=== PATIENT | male | born 1945 | race Caucasian/White ===

== ENCOUNTER 2019-10-11 12:12 | Outpatient (CLI) | payer OTHER, SELFPAY ==
--- NOTE | ~2019-10-11 | XR_ITS ---
XR hip RT min 2V 10/11/2019 12:30 INDICATION: Right hip pain. PROCEDURE: 3 views right hip COMPARISON: No prior studies for comparison. FINDINGS: Fracture, dislocation or subluxation is not identified. The soft tissues appear within norm al limits. No foreign bodies are identified. IMPRESSION: 1: NO ACUTE BONE OR JOINT ABNORMALITY IDENTIFIED. Reviewed, dictated and finalized at location A.
== END 2019-10-11 12:13 | disposition home or self-care (01) ==
PROVIDERS: PCP Family Medicine; Visit Provider Family Medicine
DX: M25.551 Pain in right hip (principal)
CPT/HCPCS: 73502

== ENCOUNTER 2019-11-15 18:59 | Inpatient (IN) | payer OTHER, SELFPAY ==
--- NOTE | ~2019-11-15 | CT_ITS ---
EXAMINATION: CT guide absc cath placement DATE: 11/17/2019 13:39 INDICATION: Perisigmoid abscess. TECHNIQUE: The procedure including the risks, benefits, and alternatives was discussed with the patie nt. Risks discussed included bleeding and infection. The patient understood the risks and benefits an d agreed to proceed. The patient was confirmed to be receiving appropriate antibiotic coverage. The skin overlying the abdomen was prepped and draped in usual sterile fashion. Anesthetic was administe red with 1% lidocaine subcutaneously. Sedation was provided by anesthesiology. An 18 gauge trochar ne edle was inserted into the perisigmoid abscess with CT guidance. The needle was exchanged over a wire for 6 Greek, 8 Greek, and 9 Greek dilators and then for an 8.5 Greek pigtail catheter. The robel ter was stitched to the skin, and a sterile dressing was applied. The mA was adjusted according to pa tient size. Iterative reconstruction technique was employed. The dose-length product was 205.08 mGy-c m. There were no immediate complications. FINDINGS: CT images demonstrate the catheter within the fluid collection. 5 mL fluid was aspirated fo r testing. IMPRESSION: 1. Successful CT-guided perisigmoid abscess drainage. 2. 5 mL galvan, opaque fluid was sent for aerobic and anaerobic cultures. Reviewed, dictated and finalized at location A.
--- NOTE | ~2019-11-15 | CT_ITS ---
EXAMINATION: CT abdomen pelvis wo con DATE: 11/15/2019 22:00 INDICATION: Lower abdominal pain TECHNIQUE: Computed tomography (CT) of the abdomen and pelvis was performed without intravenous contr ast. The dose-length product (DLP) was 1245.11 mGy-cm. Automated exposure control and iterative recon struction technique were employed. COMPARISON: 11/25/2012 FINDINGS: Minimal dependent atelectasis is present in the lung bases. The heart size is normal. Punct ate calcifications in an otherwise normal spleen likely represent healed granulomatous disease. The l iver, pancreas, and adrenal glands are normal. The kidneys are unremarkable. There is a 2.8 x 2.6 cm cystic lesion in the head of the pancreas. The pancreatic duct appears normal in caliber. There is a chronic mildly enlarged peripancreatic lymph node measuring 1.4 cm in short axis. There are otherwise no enlarged abdominal or pelvic lymph nodes. There is calcified atherosclerosis of the aorta and man y of the other arteries. There are multiple sigmoid diverticula. There is inflammatory change of the sigmoid colon with a 7.0 x 3.7 cm perisigmoid abscess. A large volume of free intraperitoneal gas is seen which tracks into the upper abdomen and under the hemidiaphragms. There are no dilated loops of bowel. IMPRESSION: 1. Perforated sigmoid diverticulitis with 7.0 x 3.7 cm perisigmoid abscess. 2. 2.8 cm cystic lesion in the pancreatic head. The differential diagnosis includes pseudocyst, intra ductal papillary mucinous neoplasm (IPMN), mucinous cystic neoplasm (MCN), and the less common serous cystadenoma and neuroendocrine tumor. Follow-up dedicated pancreas protocol CT or MRI in six months is recommended. Reviewed, dictated and finalized at location A. IMPRESSION: 1. Perforated sigmoid diverticulitis with 7.0 x 3.7 cm perisigmoid abscess. 2. 2.8 cm cystic lesion in the pancreatic head. The differential diagnosis incl udes pseudocyst, intraductal papillary mucinous neoplasm (IPMN), mucinous cysti c neoplasm (MCN), and the less common serous cystadenoma and neuroendocrine antia or. Follow-up dedicated pancreas protocol CT or MRI in six months is recommende d.
[2019-11-15 18:59] VITALS: BP 123/69; PULSE 103; RESP 25; TEMP 36.7; O2SAT 95
--- NOTE | 2019-11-15 19:05 | ECG_ITS ---
Measurements Intervals [place] Rate: 100 P: 3 [place]: 167 QRS: 20 QRSD: 103 T: -5 QT: 314 QTc: 405 Interpretive Statements SINUS TACHYCARDIA INFERIOR INFARCT, AGE INDETERMINATE BASELINE ARTIFACT- I, II, AVR, AVL ABNORMAL ECG Electronically Signed On 11-16-2019 7:05:05 CDT by Christoph Ellis D.O.
[2019-11-15 19:19] LABS: Basophils Absolute Auto 0.1 K/mm3 (0.0-0.1); Basophils Percent Auto 0.5 % (0.2-1.2); Eosinophils Absolute Auto 0.1 K/mm3 (0-0.3); Eosinophils Percent Auto 0.4 % (0-4.4); Hematocrit 47.4 % (42.0-52.0); Hemoglobin 15.3 g/dL (14.0-18.0); Immature Granulocyte Absolute 0.08 K/mm3 (0.00-0.031); Immature Granulocyte Percent A 0.5 % (0-0.5); Lymphocytes Absolute Auto 1.23 K/mm3 (0.9-3.2); Lymphocytes Percent Auto 7.3 % (18.3-44.2); Mean Corpuscular HGB Conc 32.3 g/dl (32-36); Mean Corpuscular Hemoglobin 28.7 pg (26-34); Mean Corpuscular Volume 88.8 fl (80-100); Mean Platelet Volume 9.6 fl (7.4-10.4); Monocytes Absolute Auto 0.8 K/mm3 (0.1-0.6); Monocytes Percent Auto 4.7 % (2.6-8.5); Neutrophils Absolute Auto 14.6 K/mm3 (1.3-6.7); Neutrophils Percent Auto 86.6 % (45.5-73.1); Platelet Count Result 232 k/mm3 (150-375); Red Blood Count 5.34 M/mm3 (4.6-6.20); Red Cell Distribution Width 14.9 % (11.5-14.5); White Blood Count 16.8 K/mm3 (4.5-10.0)
[2019-11-15 19:30] LABS: Alanine Aminotransferase 38 U/L (4-50); Albumin Level 4.6 g/dL (3.5-5.1); Alkaline Phosphatase 44 U/L (38-126); Anion Gap 15.7 mmol/L (7-16); Aspartate Amino Transferase 34 U/L (17-59); Bilirubin,Total 0.9 mg/dL (0.2-1.3); Blood Urea Nitrogen 23 mg/dL (9-20); Carbon Dioxide 25 mmol/L (22-30); Chloride 103 mmol/L (98-107); Estimated CRCL calculation 45 ml/min; Estimated Glomerular Filt Rate 43; Glucose 133 mg/dL (75-110); Lipase 75 U/L (23-300); Potassium 4.7 mmol/L (3.4-5.0); Sodium 139 mmol/L (137-145)
--- NOTE | 2019-11-15 19:30 | PC.NURSE ---
pt states she isn't able to urinate at this time, refused straight cath.
[2019-11-15 19:36] VITALS: BP 114/63; PULSE 103; RESP 21; O2SAT 97
--- NOTE | 2019-11-15 20:13 | PC.NURSE ---
pt states he isn't able to give urine sample at this time. pt has urinal at bedside. told to use call light when able to give urine sample.
--- NOTE | 2019-11-15 20:28 | PC.NURSE ---
pt called out asking for glass of water. this rn told pt that he cant have water until he gives urine sample and we get all tests back. pt states i cant pee without water. this rn told pt that i will check with doc about starting fluids through IV, pt states no, i need something to moisten my throat.
[2019-11-15] MEDS: ONDANSETRON INJ 4 MG/2 ML VIAL IV PUSH (20:47)
[2019-11-15 20:50] VITALS: BP 121/70; PULSE 97; RESP 21; O2SAT 99
--- NOTE | 2019-11-15 21:33 | PC.NURSE ---
pt states he isn't able to urinate at this time. refused straight cath.
--- NOTE | 2019-11-15 21:43 | ED.ABDPAIN ---
HPI - Abdominal Pain General Chief Complaint: Abdominal Pain Stated Complaint: abd pain/ syncope Time Seen by Provider: 11/15/19 19:52 Source: patient and family Mode of arrival: ambulatory Limitations: no limitations History of Present Illness HPI narrative: 74-year-old man Has a history of diverticulitis and diabetes Complains of about 3 days of diarrhea and worsening lower abdominal pain which is located mainly on the right side He does not think this is diverticulitis, because it does not seem like diverticulitis to him His appetite is been poor is little nauseated he has not had a fever today he had a episode of lightheadedness No urinary symptoms He has had no abdominal operations Related Data Home Medications Medication Instructions Recorded Confirmed albuterol sulfate INHALATION 11/15/19 glipizide mg 11/15/19 losartan 11/15/19 metformin mg PO 11/15/19 metformin mg PO 11/15/19 Allergies Allergy/AdvReac Type Severity Reaction Status Date / Time Sulfa (Sulfonamide Allergy Unknown Swelling Verified 11/15/19 19:07 Antibiotics) of Lip/Tongue/Throat sulfur dioxide Allergy Unknown Swelling Verified 11/15/19 19:07 of Lip/Tongue/Throat codeine Allergy Vomiting Verified 11/15/19 19:07 Review of Systems Review of Systems: All systems reviewed & are unremarkable except as noted in HPI and below Constitutional: Constitutional: Reports no additional constitutional complaints, Denies chills, Reports fatigue, Denies fever(s) and Reports weakness Eyes: Eyes: Reports no additional eye complaints ENT: Reports system reviewed and no additional complaints, except as documented Cardiovascular: Cardiovascular: Reports no additional cardiovascular complaints and Denies chest pain Respiratory: Respiratory: Reports no additional respiratory complaints, Denies cough and Denies dyspnea Gastrointestinal: Gastrointestinal: Reports as per HPI and Reports no additional gastrointestinal complaints Genitourinary: Genitourinary: Reports no additional male genitourinary complaints and Denies hematuria Musculoskeletal: Musculoskeletal: Reports arthralgias Neurologic: Reports dizziness, Denies headache(s) and Denies weakness [facility] Social History Social History Smoking status: Current every day smoker Alcohol intake: never Exam Const: General: no acute distress and well developed Nutritional Appearance: obese Orientation/consciousness: patient oriented x3 (alert) and Other orientation findings (Alert) Limitations: no limitations HENMT: Head: normocephalic and atraumatic General nose exam: No nasal discharge present Face and sinus: face symmetric Mouth: Yes tongue normal and Yes moist mucous membranes Throat: other (No exudate, no erythema) Eyes: Conjunctivae: conjunctivae normal Sclera: sclerae normal EOM: EOMs intact bilaterally Neck: Neck: full ROM, no lymphadenopathy and supple Thyroid: thyroid normal Chest: Chest palpation & inspection: no tenderness Resp: Effort & Inspection: normal respiratory effort Auscultation: clear to auscultation bilaterally, no rales, no rhonchi, no wheezes and other (breath sounds equal) Cardio: Rate: regular rate Rhythm: regular rhythm Heart sounds: no gallops and no murmurs GI: GI Palp: No abdominal tenderness, Yes Tenderness to palpation present (GI), Yes Guarding due to palpation present (GI), No Rigid due to palpation and Yes Rebound tenderness present Auscultation: other (bowel sounds present) Other: R > L lq's : General: Yes no CVA tenderness Back/Spine/Pelvis: Back: no CVA tenderness Thoracic/Lumbar Spine: thoracic and lumbar spine normal to inspection Skin: General skin exam: normal color and no rashes or lesions noted Neuro: General: patient oriented x3 (alert), moves all extremities and no focal motor deficits Cranial nerves: Yes facial symmetry Speech: normal speech Motor
[2019-11-15 22:10] VITALS: BP 122/84; PULSE 118; RESP 16; O2SAT 94
[2019-11-15] MEDS: LACTATED RINGERS 1,000 ML 999 ML IV CONT (22:16)
--- NOTE | 2019-11-15 22:37 | PC.NURSE ---
pt states he still isnt able to give urine sample, notified. pt refusing straight cath.
--- NOTE | 2019-11-15 22:51 | PC.NURSE ---
pt given water per md verbal request
[2019-11-15 23:04] VITALS: BP 109/69; PULSE 106; RESP 22; O2SAT 97
--- NOTE | 2019-11-15 23:05 | PC.NURSE ---
pt states he still isnt able to urinate at this time. notified
[2019-11-16 00:01] LABS: Add Urine Microscopic? YES; Appearance Urine Clear (Clear); Bilirubin Urine Negative (Negative); Blood Urine Negative (Negative); Color Urine Yellow (Yellow); Glucose Urine UA Negative (Negative); Hyaline Casts Urine 30-49 /lpf; Ketones Urine Trace mg/dL (Negative); Leukocyte Esterase Ur Negative LEU/UL (Negative); Mucus Urine Few /lpf; Nitrate Urine Negative (Negative); Protein Urine 2+ mg/dL (Negative); RBC Urine 0-2 /hpf (0-2); Specific Grav Ur 1.028 (1.001-1.035); Squamous Epithelial Cell Urine Rare /hpf (Few); Urobilinogen Urine Negative mg/dL (<2.0); WBC Urine 0-3 /hpf
[2019-11-16 01:00] VITALS: BP 125/64; PULSE 101; RESP 18; O2SAT 95
[2019-11-16 01:23] VITALS: BP 107/56; PULSE 100; RESP 19; O2SAT 99
[2019-11-16 01:32] VITALS: BP 126/60; PULSE 98; RESP 20; TEMP 36.8; O2SAT 95
--- NOTE | 2019-11-16 01:32 | ADMGEN ---
This patient, Goldy Piedra, was admitted to Medical Room 345-. Patient/family oriented to hospital policies and general routines including ID bracelet, bed and alarms, visiting hours, pain management, procedures, bathroom and other care routines, personal items, smoking policy, room service/diet, and visiting hours. Valuables list has been completed. Information on how to activate the Rapid Response Team has been discussed. Patient/Family are encouraged to report perceived risks to care and to ask questions if they do not understand what they are told or what they should do.
[2019-11-16] MEDS: LACTATED RINGERS 1,000 ML 125 ML IV CONT ×2 (01:43→14:05)
[2019-11-16 01:49] VITALS: BMI 34.3
[2019-11-16 01:54] LABS: Glucose Point of Care 169 (65-105)
[2019-11-16 08:00] VITALS: PULSE 98; RESP 20; O2SAT 95
[2019-11-16 09:12] LABS: Basophils Absolute Auto 0.1 K/mm3 (0.0-0.1); Basophils Percent Auto 0.4 % (0.2-1.2); Hematocrit 38.1 % (42.0-52.0); Hemoglobin 12.6 g/dL (14.0-18.0); Immature Granulocyte Absolute 0.19 K/mm3 (0.00-0.031); Immature Granulocyte Percent A 0.8 % (0-0.5); Lymphocytes Absolute Auto 2.27 K/mm3 (0.9-3.2); Mean Corpuscular HGB Conc 33.1 g/dl (32-36); Mean Corpuscular Hemoglobin 28.5 pg (26-34); Mean Corpuscular Volume 86.2 fl (80-100); Mean Platelet Volume 10.2 fl (7.4-10.4); Monocytes Absolute Auto 1.6 K/mm3 (0.1-0.6); Monocytes Percent Auto 7.2 % (2.6-8.5); Neutrophils Absolute Auto 18.4 K/mm3 (1.3-6.7); Neutrophils Percent Auto 81.6 % (45.5-73.1); Platelet Count Result 202 k/mm3 (150-375); Red Blood Count 4.42 M/mm3 (4.6-6.20); Red Cell Distribution Width 14.7 % (11.5-14.5); White Blood Count 22.6 K/mm3 (4.5-10.0)
[2019-11-16 09:21] LABS: INR 1.2; Prothrombin Time 14.6 Seconds (11.1-14.7)
--- NOTE | 2019-11-16 09:21 | PM.CNGS ---
Assessment and Plan Assessment and plan (1) Abscess of sigmoid colon due to diverticulitis: Code(s): K57.20 - Diverticulitis of large intestine with perforation and abscess without bleeding Status: Acute Assessment and Plan: will likely need perc drainage of pericolonic abscess, will check coags, cont IV abx (2) Diabetes: Code(s): E11.9 - Type 2 diabetes mellitus without complications Status: Acute Assessment and Plan: stable, mgmt per primary (3) Hypertension: Code(s): I10 - Essential (primary) hypertension Status: Acute Assessment and Plan: stable, mgmt per primary (4) Hyperlipidemia: Code(s): E78.5 - Hyperlipidemia, unspecified Status: Acute Assessment and Plan: stable, mgmt per primary History of Present Illness Consult details Consult date: 11/16/19 Reason for consult: abdominal pain Requesting physician: Renee Reid PA-C Narrative: Pt is a 74 y/o M c h/o diverticular dz presenting c 1 wk h/o worsening lower abd pain. Pt reports pain is dull, constant. Pt reports pain worsened yesterday. Pt reports increased weakness, fatigue, poor appetite. Pt reports some subjective fevers, chills. Pt reports previous episodes of diverticulitis but none this severe. Review of Systems Constitutional: Constitutional: Reports chills, Reports fatigue, Reports lethargy and Reports weakness Eyes: Eyes: Reports no additional eye complaints ENT: Reports Normal hearing present Cardiovascular: Cardiovascular: Denies chest pain and Denies palpitations Respiratory: Respiratory: Denies dyspnea Gastrointestinal: Gastrointestinal: Reports abdominal pain, Reports bloating, Denies constipation, Denies diarrhea, Reports nausea, Denies vomiting and Denies hematemesis Genitourinary: Genitourinary: Denies dysuria, Denies urinary hesitancy and Denies urinary urgency Musculoskeletal: Musculoskeletal: Reports no additional musculoskeletal complaints Integumentary/Breasts: Skin/Breast: Reports system reviewed and no additional complaints, except as docu Neurologic: Reports system reviewed and no additional complaints, except as documented Psychiatric: Psychiatric: Reports no additional psychiatric complaints [facility], [facility] Family History Family History Father Diabetes mellitus Heart attack Sibling Malignant neoplasm of prostate Social History Social History Smoking packs per day: 1.5 Smoking cigarettes per day: 30.0 Smoking status: Former smoker Tobacco type: cigarettes Alcohol intake: never Substance use: never Gender identity (if verbalized by the patient): Male Sexual Orientation (if Verbalized by the Patient): Straight or Heterosexual Spiritual care concerns: No Meds Home Medications and Allergies Home Medications Medication Instructions Recorded Confirmed Type albuterol sulfate 2 puff INHALATION PRN 11/15/19 11/16/19 History glipizide 10 mg PO QAM AND QHS 11/15/19 11/16/19 History losartan 100 mg PO DAILY 11/15/19 11/16/19 History metformin 1,000 mg PO BID 11/15/19 11/16/19 History Adult Low Dose Aspirin 81 mg PO DAILY 11/16/19 11/16/19 History metoprolol succinate 50 mg PO DAILY 11/16/19 11/16/19 History simvastatin 20 mg PO HS 11/16/19 11/16/19 History Allergies Allergy/AdvReac Type Severity Reaction Status Date / Time Sulfa (Sulfonamide Allergy Unknown Swelling Verified 11/15/19 19:07 Antibiotics) of Lip/Tongue/Throat sulfur dioxide Allergy Unknown Swelling Verified 11/15/19 19:07 of Lip/Tongue/Throat codeine Allergy Vomiting Verified 11/15/19 19:07 Vital Signs Vital Signs - 24 hr 11/15/19 18:59 11/15/19 19:36 11/15/19 20:50 Temperature 36.7 C Pulse Rate 103 H 103 H 97 Respiratory Rate 25 H 21 H 21 H Blood Pressure 123/69 114/63 121/70 Pulse Oximetry 95 97 99 11/15/19 22:
[2019-11-16 09:22] LABS: Partial Thromboplastin Time 30.6 SECONDS (22.3-36.8)
[2019-11-16 09:23] LABS: Alanine Aminotransferase 29 U/L (4-50); Albumin Level 3.5 g/dL (3.5-5.1); Alkaline Phosphatase 30 U/L (38-126); Anion Gap 13.7 mmol/L (7-16); Aspartate Amino Transferase 21 U/L (17-59); Bilirubin,Total 1.1 mg/dL (0.2-1.3); Blood Urea Nitrogen 21 mg/dL (9-20); Carbon Dioxide 25 mmol/L (22-30); Chloride 101 mmol/L (98-107); Estimated CRCL calculation 60 ml/min; Estimated Glomerular Filt Rate 59; Glucose 140 mg/dL (75-110); Potassium 4.7 mmol/L (3.4-5.0); Sodium 135 mmol/L (137-145)
--- NOTE | 2019-11-16 10:38 | PM.IMHP ---
H&P: HPI History of Present Illness Chief complaint: perforated diverticulitis with abscess Narrative: Goldy Piedra is a 74 year old male with a history of coronary artery disease, diabetes, hypertension, hyperlipidemia, diverticulitis, who presented to the emergency department with a one-week history of diarrhea, nausea and vomiting, and constant right lower quadrant soreness. patient denies any alleviating or exacerbating symptoms. He denies any blood, tarry stools or watery stools to his diarrhea. The only reason why he came into the emergency room yesterday was because he was at his son's house and was going to the bathroom and felt his legs become weak and give out on him and he fell. He denies any lightheadedness, dizziness, syncope. He states he remembers the whole event and hit his right hip but denies hitting his head or having any other injuries. He states he has been walking around without any issues or complaints. His became concerned and told him he needed to go to the emergency room for further evaluation. The patient states about 5 years ago he had episode of diverticulitis and his only symptom was while he was going to the bathroom he ended up having a syncopal episode which brought him to the ER and they found out that he had diverticulitis, Without any associated nausea, vomiting, diarrhea or abdominal pain. At this time he denies any weakness, fatigue, chest pain, shortness of breath, worsening chronic productive cough, dysuria, frequent urination, dark color to his urine, leg swelling, calf pain, or any other symptoms at this time. Code status: Do Not Intubate, will have care coordination give him paperwork to fill out so we have this on file. POA: , Annette PCP: Dr. Olivia Review of Systems Review of Systems: All systems reviewed & are unremarkable except as noted in HPI and below [facility] Past Medical History Medical History CAD (coronary artery disease) Had cardiac cath which showed stenosis, but no PCI placed Diabetes Diverticulitis Emphysema of lung Hyperlipidemia Hypertension Surgical History Surgical History History of back surgery In Apr [address] [facility] History of carpal tunnel release Hx of cardiac cath Hx of colonoscopy Hx of hemorrhoidectomy Hx of repair of right rotator cuff Hx of total knee arthroplasty Bilateral Family History Family History (Updated 11/16/19 @ 12:11 by Renee Reid PA-C) Father Diabetes mellitus Heart attack Sibling Malignant neoplasm of prostate Sibling Diabetes mellitus Cancer Social History Social History (Updated 11/16/19 @ 12:12 by Renee Reid PA-C) Smoking packs per day: 1.5 Smoking cigarettes per day: 30.0 Years smoked: 42 Smoking pack-years: 63.00 Smoking status: Former smoker Tobacco type: cigarettes Smoking end date: 04/23/03 Alcohol intake: never Substance use: never Living arrangements: with family Additional living arrangements comments: Lives in [place] with , Annette Occupation/Education: retired Additional occupation/education comments: Worked at [employer] in [place] Gender identity (if verbalized by the patient): Male Sexual Orientation (if Verbalized by the Patient): Straight or Heterosexual Spiritual care concerns: No Meds Home Medications and Allergies Home Medications Medication Instructions Recorded Confirmed Type albuterol sulfate 2 puff INHALATION PRN 11/15/19 11/16/19 History glipizide 10 mg PO QAM AND QHS 11/15/19 11/16/19 History losartan 100 mg PO DAILY 11/15/19 11/16/19 History metformin 1,000 mg PO BID 11/15/19 11/16/19 History Adult Low Dose Aspirin 81 mg PO DAILY 11/16/19 11/16/19 History metoprolol succinate 50 mg PO DAILY 11/16/19 11/16/19 History simvastatin 20 mg PO HS 11/16/19 11/16/19 Histo
[2019-11-16 12:58] LABS: Glucose Point of Care 151 (65-105)
[2019-11-16] MEDS: PANTOPRAZOLE SODIUM IV 40 MG VIAL IV PUSH ×2 (13:35→21:31)
[2019-11-16 14:00] VITALS: BP 136/66; PULSE 96; RESP 18; TEMP 36.9; O2SAT 100
[2019-11-16 16:33] LABS: Glucose Point of Care 129 (65-105)
[2019-11-16 20:25] VITALS: BP 136/65; PULSE 115; RESP 20; TEMP 36.6; O2SAT 96
[2019-11-17 00:42] LABS: Glucose Point of Care 161 (65-105)
[2019-11-17 06:00] VITALS: BP 136/78; PULSE 114; RESP 18; TEMP 36.9; O2SAT 93
[2019-11-17 06:06] LABS: Basophils Percent Auto 0.2 % (0.2-1.2); Eosinophils Percent Auto 0.2 % (0-4.4); Hematocrit 37.4 % (42.0-52.0); Hemoglobin 12.5 g/dL (14.0-18.0); Immature Granulocyte Absolute 0.18 K/mm3 (0.00-0.031); Immature Granulocyte Percent A 1.1 % (0-0.5); Lymphocytes Absolute Auto 1.67 K/mm3 (0.9-3.2); Lymphocytes Percent Auto 9.9 % (18.3-44.2); Mean Corpuscular HGB Conc 33.4 g/dl (32-36); Mean Corpuscular Hemoglobin 28.7 pg (26-34); Monocytes Absolute Auto 1.2 K/mm3 (0.1-0.6); Monocytes Percent Auto 7.1 % (2.6-8.5); Neutrophils Absolute Auto 13.7 K/mm3 (1.3-6.7); Neutrophils Percent Auto 81.5 % (45.5-73.1); Platelet Count Result 216 k/mm3 (150-375); Red Blood Count 4.35 M/mm3 (4.6-6.20); Red Cell Distribution Width 14.6 % (11.5-14.5); White Blood Count 16.8 K/mm3 (4.5-10.0)
[2019-11-17] MEDS: LACTATED RINGERS 1,000 ML 125 ML IV CONT ×2 (06:38→18:07)
[2019-11-17 06:40] LABS: Glucose Point of Care 148 (65-105)
[2019-11-17 06:57] LABS: Blood Urea Nitrogen 15 mg/dL (9-20); Carbon Dioxide 24 mmol/L (22-30); Chloride 96 mmol/L (98-107); Estimated CRCL calculation 66 ml/min; Estimated Glomerular Filt Rate > 60; Glucose 156 mg/dL (75-110); Sodium 131 mmol/L (137-145)
[2019-11-17] MEDS: PANTOPRAZOLE SODIUM IV 40 MG VIAL IV PUSH ×2 (08:59→20:48)
--- NOTE | 2019-11-17 09:58 | PM.IMPN ---
Progress Note: A&P Assessment and Plan (1) Abscess of sigmoid colon due to diverticulitis: Code(s): K57.20 - Diverticulitis of large intestine with perforation and abscess without bleeding Status: Acute Assessment and Plan: patient has history of diverticulitis in the past. Now found on CT abdomen to have a perforated sigmoid diverticulitis with a 7.0 x 3.[address] Vernon surgery evaluated the patient and ordered a perc drain to be placed to his abscess continue IV antibiotics with Zosyn and pain control. Patient is NPO at this time until he has the drain placed. Continue monitoring patient's symptoms and appreciate surgeries input. (2) Sepsis: Code(s): A41.9 - Sepsis, unspecified organism Status: Acute Assessment and Plan: patient was found to be septic on arrival with leukocytosis, tachycardic heart rate, in the setting of diverticulitis with an abscess patient started on IV antibiotics and IV fluids blood cultures were not taken in the emergency department so I will take them at this time but it will not be as accurate since he has already had antibiotics patient vital signs this morning show he is tachycardic in 110's, he is afebrile, normal blood pressure, and normal oxygenation. [place]'s [place] [id number] [place] [id number]. His neutrophil count did decrease with the antibiotics. Continue monitoring patient's vitals and leukocytosis during hospitalization. (3) Acute renal insufficiency: Code(s): N28.9 - Disorder of kidney and ureter, unspecified Status: Acute Assessment and Plan: most likely secondary to acute infection, dehydration from diarrhea creatinine on arrival was 1.6 and improved with IV fluids overnight to 1.1. No prior labs to further evaluate what his baseline creatinine is. Continue with IV fluids while he is NPO and monitor his renal function and electrolytes. (4) Diabetes: Code(s): E11.9 - Type 2 diabetes mellitus without complications Status: Acute Assessment and Plan: patient's history of diabetes and is on oral medications. We will hold these medications at this time since he is NPO. Serum glucose this morning was 156. Will check hemoglobin A1c which is pending continue monitoring patient's glucose ACHS, hypoglycemic protocol in place, sliding scale insulin ordered (5) Hypertension: Code(s): I10 - Essential (primary) hypertension Status: Acute Assessment and Plan: blood pressure has been stable since arrival. Will hold his medications at this time since he is NPO and once eating and drinking without any issues will restart. Continue monitoring patient's blood pressure. (6) Hyperlipidemia: Code(s): E78.5 - Hyperlipidemia, unspecified Status: Acute Assessment and Plan: Will hold statin at this time since he is NPO. (7) Abnormal CT of the abdomen: Code(s): R93.5 - Abnormal findings on diagnostic imaging of other abdominal regions, including retroperitoneum Status: Acute Assessment and Plan: CT Abd/Pelvis on arrival showed 2.8 cm cystic lesion in the pancreatic head. The differential diagnosis includes pseudocyst, intraductal papillary mucinous neoplasm (IPMN), mucinous cystic neoplasm (MCN), and the less common serous cystadenoma and neuroendocrine tumor. He will need to Follow-up for a pancreas protocol CT or MRI in 6 months by his PCP as an outpatient. Informed the patient of findings and need for further testing as outpatient. Time Spent With Patient Time with patient: mi
--- NOTE | 2019-11-17 10:24 | WPDANESEPPF ---
Anes - Initial Pre Proc Eval Procedure: CT guided abscess drain placement <Moses Tabares DO - Last Filed: 11/17/19 10:26> Date/Time: 11/17/19 10:24 <Moses Tabares DO - Last Filed: 11/17/19 10:26> Surgeon: Ida <Moses Tabares DO - Last Filed: 11/17/19 10:26> Pre Op Diagnosis: perforated diverticulitis with abscess <Moses Tabares DO - Last Filed: 11/17/19 10:26> Patient Data Age: 74 Gender: M Height: 1.78 m Weight: 112.8 kg <Moses Tabares DO - Last Filed: 11/17/19 10:26> Last Vital Signs Temp 36.9 C 11/17/19 06:00 Pulse 114 H 11/17/19 06:00 Resp 18 11/17/19 06:00 BP 136/78 11/17/19 06:00 Pulse Ox 93 11/17/19 06:00 <Moses Tabares DO - Last Filed: 11/17/19 10:26> Allergies Allergy/AdvReac Type Severity Reaction Status Date / Time Sulfa (Sulfonamide Allergy Unknown Swelling Verified 11/15/19 19:07 Antibiotics) of Lip/Tongue/Throat sulfur dioxide Allergy Unknown Swelling Verified 11/15/19 19:07 of Lip/Tongue/Throat codeine Allergy Vomiting Verified 11/15/19 19:07 <Moses Tabares DO - Last Filed: 11/17/19 10:26> Home Medications Medication Instructions Recorded Confirmed Type albuterol sulfate 2 puff INHALATION PRN 11/15/19 11/16/19 History glipizide 10 mg PO QAM AND QHS 11/15/19 11/16/19 History losartan 100 mg PO DAILY 11/15/19 11/16/19 History metformin 1,000 mg PO BID 11/15/19 11/16/19 History Adult Low Dose Aspirin 81 mg PO DAILY 11/16/19 11/16/19 History diclofenac sodium 100 mg PO DAILY 11/16/19 11/16/19 History metoprolol succinate 50 mg PO DAILY 11/16/19 11/16/19 History simvastatin 20 mg PO HS 11/16/19 11/16/19 History <Moses Tabares, DO - Last Filed: 11/17/19 10:26> Laboratory Tests 11/16/19 11/16/19 11/17/19 12:55 16:29 00:38 WBC RBC Hgb Hct MCV MCH MCHC RDW Plt Count MPV Immature Gran % (Auto) Neut % (Auto) Lymph % (Auto) [place] % (Auto) Eos % (Auto) Baso % (Auto) Lymph # (Auto) [place] # (Auto) Eos # (Auto) Baso # (Auto) Abs Immat Gran (auto) Absolute Neuts (auto) Absolute Nucleated RBC Nucleated RBC % Sodium Potassium Chloride Carbon Dioxide Anion Gap BUN Creatinine Estim Creat Clear Calc Estimated GFR Glucose POC Capillary Glucose 151 mg/dl H mg/dl 129 mg/dl H mg/dl 161 mg/dl H mg/dl (65-105) (65-105) (65-105) Calcium 11/17/19 11/17/19 11/17/19 05:41 05:41 06:28 WBC 16.8 K/mm3 H K/mm3 (4.5-10.0) RBC 4.35 M/mm3 L M/mm3 (4.6-6.20) Hgb 12.5 g/dL L g/dL (14.0-18.0) Hct 37.4 % L % (42.0-52.0) MCV 86.0 fl fl (80-100) MCH 28.7 pg pg (26-34) MCHC 33.4 g/dl g/dl (32-36) RDW 14.6 % H % (11.5-14.5) Plt Count 216 k/mm3 k/mm3 (150-375) MPV 10.0 fl fl (7.4-10.4) Immature Gran % (Auto) 1.1 % H % (0-0.5) Neut % (Auto) 81.5 % H % (45.5-73.1) Lymph % (Auto) 9.9 % L % (18.3-44.2) [place] % (Auto) 7.1 % % (2.6-8.5) Eos % (Auto) 0.2 % % (0-4.4) Baso % (Auto) 0.2 % % (0.2-1.2) Lymph # (Auto) 1.67 K/mm3 K/mm3 (0.9-3.2) [place] # (Auto) 1.2 K/mm3 H K/mm3 (0.1-0.6) Eos # (Auto) 0.0 K/mm3 K/mm3 (0-0.3) Baso # (Auto) 0.0 K/mm3 K/mm3 (0.0-0.1) Abs Immat Gran (auto) 0.18 K/mm3 H K/mm3 (0.00-0.031) Absolute Neuts (auto) 13.7 K/mm3 H K/mm3 (1.3-6.7) Absolute Nucleated RBC
--- NOTE | 2019-11-17 11:29 | PM.PNGS ---
Progress Note: A&P Assessment and Plan (1) Abscess of sigmoid colon due to diverticulitis: Code(s): K57.20 - Diverticulitis of large intestine with perforation and abscess without bleeding Status: Acute Assessment and Plan: Patient still having abdominal pain and tender on exam. WBC trending down and afebrile. Continue broad-spectrum IV abx Planning for perc drainage of pericolonic abscess today in Radiology Will keep NPO for now Repeat labs in am (2) Diabetes: Code(s): E11.9 - Type 2 diabetes mellitus without complications Status: Acute (3) Hypertension: Code(s): I10 - Essential (primary) hypertension Status: Acute (4) Hyperlipidemia: Code(s): E78.5 - Hyperlipidemia, unspecified Status: Acute Additional Plan Discussed plan of care with Dr. Vernon today. Subjective Subjective Date/Time Seen: 11/17/19 11:29 Patient reports: still having pain, flatus and bowel movement Interval history: Patient seen this morning and reports his abdominal pain is about the same as yesterday. States his pain is 6-7/10 mostly in the RLQ of his abdomen. Worse with movement. He states he does not want to take pain medication if his pain is tolerable, so he has been avoiding this. Feels slightly bloated, but no nausea or vomiting. Reports flatus and a liquid BM this morning. No other complaints at this time. Review of Systems Review of Systems: All systems reviewed & are unremarkable except as noted in HPI and below Constitutional: Constitutional: Reports no additional constitutional complaints, Denies chills and Denies fever(s) Cardiovascular: Cardiovascular: Reports no additional cardiovascular complaints and Denies chest pain Respiratory: Respiratory: Reports no additional respiratory complaints and Denies cough Gastrointestinal: Gastrointestinal: Reports as per HPI and Reports no additional gastrointestinal complaints Exam Const: General: comfortable, no acute distress, alert and awake Orientation/consciousness: patient oriented x3 GI: Inspection: other (mildly distended) GI Palp: Yes Soft to palpation, Yes Tenderness to palpation present (GI) (diffusely tender throughout, worse in lower abd R>L), Yes Guarding due to palpation present (GI) (RLQ) and Yes Rebound tenderness present Auscultation: normal bowel sounds Rectal Exam: deferred Skin: General skin exam: normal color and no rashes or lesions noted Neuro: General: moves all extremities and no focal motor deficits Extrem: General: normal to inspection and no clubbing, cyanosis or edema Psych: Mental Status: mental status grossly normal Affect: normal affect Insight: Good insight present (Psych) Judgement: Good judgement present (Psych) Objective Data Vital Signs Vital Signs: Vital Signs - 24 hr 11/16/19 14:00 11/16/19 20:25 11/17/19 06:00 Temperature 98.5 F 97.9 F 98.4 F Pulse Rate 96 115 H 114 H Respiratory Rate 18 20 18 Blood Pressure 136/66 136/65 136/78 Pulse Oximetry 100 96 93 Intake/Output Intake/Output: Intake & Output 11/14/19 11/15/19 11/16/19 11/17/19 23:59 23:59 23:59 23:59 Intake Total 1150 1100 Output Total 1200 Balance -50 1100 Meds/Results Medications: Active Medications Generic Name Dose Route Start Last Admin Trade Name Freq PRN Reason Stop Dose Admin Acetaminophen 650 mg 11/15/19 23:32 Tylenol Tablet PO Q4H PRN Mild Pain (1-3) or Fever Albuterol 2 puff 11/16/19 08:30 Proventil Hfa INHALATION PRN PRN Wheezing Dextrose 12.5 gm 11/16/19 08:32 Dextrose 50% Syringe IV PUSH PRN PRN Hypoglycemia Protocol Fentanyl Citrate 50 mcg 11/15/19 23:32 Sublimaze IV PUSH Q2H PRN Pain Rated 7-10 Glucagon 1 mg 11/16/19 08:32 Glucagon For Inj IM PRN PRN Hypoglycemia Protocol Glucose 15 gm 11/16/19 08:32 Glutose 15 PO PRN PRN Hypoglycemia Protocol Lactated Ringer'
[2019-11-17 11:38] LABS: Hemoglobin A1C 6.8 % (<5.7)
[2019-11-17 11:44] LABS: Glucose Point of Care 142 (65-105)
--- NOTE | 2019-11-17 12:00 | PC.NURSE ---
Pt to CT for drain placement.
--- NOTE | 2019-11-17 13:41 | PC.NURSE ---
Pt returned from CT.
[2019-11-17 13:55] VITALS: BP 140/83; PULSE 108; RESP 16; TEMP 37.5; O2SAT 95
[2019-11-17 14:10] VITALS: BP 144/79; PULSE 110; RESP 16; TEMP 36.7; O2SAT 95
[2019-11-17 14:40] VITALS: BP 143/81; PULSE 110; RESP 16; TEMP 36.8; O2SAT 95
[2019-11-17 15:40] VITALS: BP 145/91; PULSE 114; RESP 18; TEMP 37.1
[2019-11-17 16:46] LABS: Glucose Point of Care 167 (65-105)
[2019-11-17 19:54] VITALS: BP 152/96; PULSE 92; RESP 20; TEMP 36.5; O2SAT 93
[2019-11-17 20:58] LABS: Glucose Point of Care 145 (65-105)
[2019-11-18] MEDS: LACTATED RINGERS 1,000 ML 125 ML IV CONT (03:31)
[2019-11-18 05:22] VITALS: BP 137/60; PULSE 99; RESP 14; TEMP 37.1; O2SAT 94
[2019-11-18 06:16] LABS: Basophils Percent Auto 0.2 % (0.2-1.2); Eosinophils Absolute Auto 0.2 K/mm3 (0-0.3); Eosinophils Percent Auto 1.6 % (0-4.4); Hematocrit 37.4 % (42.0-52.0); Hemoglobin 12.5 g/dL (14.0-18.0); Immature Granulocyte Percent A 0.8 % (0-0.5); Lymphocytes Absolute Auto 1.65 K/mm3 (0.9-3.2); Lymphocytes Percent Auto 13.6 % (18.3-44.2); Mean Corpuscular HGB Conc 33.4 g/dl (32-36); Mean Corpuscular Hemoglobin 28.9 pg (26-34); Mean Corpuscular Volume 86.4 fl (80-100); Mean Platelet Volume 10.3 fl (7.4-10.4); Monocytes Percent Auto 7.9 % (2.6-8.5); Neutrophils Absolute Auto 9.2 K/mm3 (1.3-6.7); Neutrophils Percent Auto 75.9 % (45.5-73.1); Platelet Count Result 203 k/mm3 (150-375); Red Blood Count 4.33 M/mm3 (4.6-6.20); Red Cell Distribution Width 14.3 % (11.5-14.5); White Blood Count 12.1 K/mm3 (4.5-10.0)
[2019-11-18 06:46] LABS: Anion Gap 13.7 mmol/L (7-16); Blood Urea Nitrogen 13 mg/dL (9-20); Carbon Dioxide 26 mmol/L (22-30); Chloride 96 mmol/L (98-107); Estimated CRCL calculation 62 ml/min; Estimated Glomerular Filt Rate 59; Glucose 160 mg/dL (75-110); Potassium 3.7 mmol/L (3.4-5.0); Sodium 132 mmol/L (137-145)
[2019-11-18 07:39] LABS: Glucose Point of Care 157 (65-105)
[2019-11-18] MEDS: PANTOPRAZOLE SODIUM IV 40 MG VIAL IV PUSH ×2 (07:51→20:19)
[2019-11-18 11:26] LABS: Glucose Point of Care 187 (65-105)
--- NOTE | 2019-11-18 13:13 | PM.PNGS ---
Progress Note: A&P Assessment and Plan (1) Abscess of sigmoid colon due to diverticulitis: Code(s): K57.20 - Diverticulitis of large intestine with perforation and abscess without bleeding Status: Acute Assessment and Plan: Patient clinically improving. WBC trending down and remains afebrile. Continue broad-spectrum IV abx Monitor perc drain output Advanced to full liquid diet Consult dietitian to educate on low vs. high fiber diet (2) Diabetes: Code(s): E11.9 - Type 2 diabetes mellitus without complications Status: Acute Assessment and Plan: Management per primary service (3) Hypertension: Code(s): I10 - Essential (primary) hypertension Status: Acute Assessment and Plan: Okay to restart home meds. Management per primary service (4) Hyperlipidemia: Code(s): E78.5 - Hyperlipidemia, unspecified Status: Acute Additional Plan Discussed plan of care with Dr. Vernon today. Subjective Subjective Date/Time Seen: 11/18/19 10:13 Patient reports: no new complaints, feels better, pain is less, flatus, bowel movement and diarrhea Interval history: Patient tolerating clear liquid diet this morning. Still feels bloated and having primarily RLQ abdominal pain, but this has improved. Reports two liquid BMs today so far. Denies nausea or vomiting. No other complaints. Review of Systems Review of Systems: All systems reviewed & are unremarkable except as noted in HPI and below Constitutional: Constitutional: Denies chills and Denies fever(s) Cardiovascular: Cardiovascular: Reports no additional cardiovascular complaints and Denies chest pain Respiratory: Respiratory: Reports no additional respiratory complaints and Denies dyspnea Gastrointestinal: Gastrointestinal: Reports as per HPI and Reports no additional gastrointestinal complaints Exam Const: General: comfortable, no acute distress, alert and awake Orientation/consciousness: patient oriented x3 GI: Inspection: other (mildly distended) GI Palp: Yes Soft to palpation, Yes Tenderness to palpation present (GI) (diffusely tender with worst tenderness in RLQ), Yes Guarding due to palpation present (GI) (RLQ) and Yes Rebound tenderness present Auscultation: normal bowel sounds Other: RLQ perc drain with galvan-bloody purulent drainage, on suction working well Neuro: General: moves all extremities and no focal motor deficits Extrem: General: no clubbing, cyanosis or edema Psych: Mental Status: mental status grossly normal Affect: normal affect Insight: Good insight present (Psych) Judgement: Good judgement present (Psych) Objective Data Vital Signs Vital Signs: Vital Signs - 24 hr 11/17/19 13:55 11/17/19 14:10 11/17/19 14:40 Temperature 99.5 F 98.1 F 98.2 F Pulse Rate 108 H 110 H 110 H Respiratory Rate 16 16 16 Blood Pressure 140/83 144/79 H 143/81 H Pulse Oximetry 95 95 95 11/17/19 15:40 11/17/19 19:54 11/18/19 05:22 Temperature 98.7 F 97.7 F 98.7 F Pulse Rate 114 H 92 99 Respiratory Rate 18 20 14 Blood Pressure 145/91 H 152/96 H 137/60 Pulse Oximetry 93 94 Intake/Output Intake/Output: Intake & Output 11/15/19 11/16/19 11/17/19 11/18/19 23:59 23:59 23:59 23:59 Intake Total 1150 2250 1690 Output Total 1200 30 20 Balance -50 2220 1670 Meds/Results Medications: Active Medications Generic Name Dose Route Start Last Admin Trade Name Freq PRN Reason Stop Dose Admin Acetaminophen 650 mg 11/15/19 23:32 Tylenol Tablet PO Q4H PRN Mild Pain (1-3) or Fever Albuterol 2 puff 11/16/19 08:30 Proventil Hfa INHALATION PRN PRN Wheezing Dextrose 12.5 gm 11/16/19 08:32 Dextrose 50% Syringe IV PUSH PRN PRN Hypoglycemia Protocol Fentanyl Citrate 50 mcg 11/15/19 23:32 Sublimaze IV PUSH Q2H PRN Pain Rated 7-10 Glucagon 1 mg 11/16/19 08:32 Glucagon For Inj IM PRN PRN Hypoglycemia Protocol Gluc
--- NOTE | 2019-11-18 13:29 | PM.IMPN ---
Progress Note: A&P Assessment and Plan (1) Abscess of sigmoid colon due to diverticulitis: Code(s): K57.20 - Diverticulitis of large intestine with perforation and abscess without bleeding Status: Acute Assessment and Plan: patient has history of diverticulitis in the past. Now found on CT abdomen to have a perforated sigmoid diverticulitis with a 7.0 x 3.[address] Vernon surgery evaluated the patient and ordered a perc drain to be placed to his abscess continue IV antibiotics with Zosyn and pain control. for another 1-2 days time, awaiting [facility] to come down hopeful discharge in 1-2 with outpatient colonscopy (2) Sepsis: Code(s): A41.9 - Sepsis, unspecified organism Status: Acute Assessment and Plan: patient was found to be septic on arrival with leukocytosis, tachycardic heart rate, secondary to diverticulitis with an abscess (3) Acute renal insufficiency: Code(s): N28.9 - Disorder of kidney and ureter, unspecified Status: Resolved Assessment and Plan: Creat is 1.2 stop iv fluids (4) Diabetes: Code(s): E11.9 - Type 2 diabetes mellitus without complications Status: Acute Assessment and Plan: continue monitoring patient's glucose ACHS, hypoglycemic protocol in place, sliding scale insulin ordered (5) Hypertension: Code(s): I10 - Essential (primary) hypertension Status: Acute Assessment and Plan: blood pressure has been stable since arrival. (6) Hyperlipidemia: Code(s): E78.5 - Hyperlipidemia, unspecified Status: Acute Assessment and Plan: (7) Abnormal CT of the abdomen: Code(s): R93.5 - Abnormal findings on diagnostic imaging of other abdominal regions, including retroperitoneum Status: Acute Assessment and Plan: CT Abd/Pelvis on arrival showed 2.8 cm cystic lesion in the pancreatic head. The differential diagnosis includes pseudocyst, intraductal papillary mucinous neoplasm (IPMN), mucinous cystic neoplasm (MCN), and the less common serous cystadenoma and neuroendocrine tumor. Subjective Date/time seen: 11/18/19 13:29 Interval history: 74 year old male with a history of coronary artery disease, diabetes, hypertension, hyperlipidemia, diverticulitis, who presented to the emergency department with a one-week history of diarrhea, nausea and vomiting, and constant right lower quadrant soreness.pt is being treated for diverticulitis pt had drain placed on sunday for diverticular abscess, pt is still having diarrhea. wcc are improving no abdominal complains apart from some diarrhea Review of Systems Review of Systems: All systems reviewed & are unremarkable except as noted in HPI and below Exam Const: General: no acute distress and tired appearing Nutritional Appearance: overweight Orientation/consciousness: oriented to person HENMT: Head: normal to inspection Resp: Effort & Inspection: no respiratory distress Auscultation: no rhonchi and no wheezes Cardio: Rate: regular rate Rhythm: regular rhythm GI: Inspection: normal to inspection GI Palp: No abdominal tenderness, No Guarding due to palpation present (GI), No Hepatomegaly present and Yes Other GI palpation findings present (superfical drain in situ ) Auscultation: normal bowel sounds Neuro: General: oriented to person Objective Data Vital Signs Vital Signs: Vital Signs - 24 hr 11/17/19 13:55 11/17/19 14:10 11/17/19 14:40 Temperature 37.5 C 36.7 C 36.8 C Pulse Rate 108 H 110 H 110 H Respiratory Rate 16 16 16 Blood Pressure 140/83 144/79 H 143
[2019-11-18 14:00] VITALS: BP 143/77; PULSE 104; RESP 12; TEMP 36.8; O2SAT 94
[2019-11-18 16:30] LABS: Glucose Point of Care 160 (65-105)
--- NOTE | 2019-11-18 19:02 | PC.NURSE ---
On 11/18/19, the Graduate Nurse, Diana Ernst, provided care and completed [facility] documentation on this patient. I have reviewed the Graduate Nurse's documentation and agree with the findings.
[2019-11-18 21:45] LABS: Glucose Point of Care 172 (65-105)
[2019-11-18 21:56] VITALS: BP 147/83; PULSE 101; RESP 16; TEMP 36.4; O2SAT 94
[2019-11-19 05:50] LABS: Hematocrit 39.3 % (42.0-52.0); Mean Corpuscular HGB Conc 33.1 g/dl (32-36); Mean Corpuscular Hemoglobin 28.6 pg (26-34); Mean Corpuscular Volume 86.4 fl (80-100); Mean Platelet Volume 10.1 fl (7.4-10.4); Platelet Count Result 241 k/mm3 (150-375); Red Blood Count 4.55 M/mm3 (4.6-6.20); Red Cell Distribution Width 14.1 % (11.5-14.5); White Blood Count 8.2 K/mm3 (4.5-10.0)
[2019-11-19 05:57] VITALS: BP 147/71; PULSE 89; RESP 14; TEMP 36.7; O2SAT 94
[2019-11-19 05:57] LABS: Anion Gap 13.8 mmol/L (7-16); Blood Urea Nitrogen 13 mg/dL (9-20); Calcium 9.1 mg/dL (8.4-10.2); Carbon Dioxide 28 mmol/L (22-30); Chloride 96 mmol/L (98-107); Estimated CRCL calculation 62 ml/min; Estimated Glomerular Filt Rate 59; Glucose 166 mg/dL (75-110); Potassium 3.8 mmol/L (3.4-5.0); Sodium 134 mmol/L (137-145)
[2019-11-19 07:31] LABS: Glucose Point of Care 188 (65-105)
[2019-11-19] MEDS: PANTOPRAZOLE SODIUM IV 40 MG VIAL IV PUSH (08:13)
--- NOTE | 2019-11-19 11:40 | PCDIET ---
Physician Consult for low fiber/high fiber education. Acute Diverticulitis. See Nutritional Teaching Intervention. Thank you for the consult.
--- NOTE | 2019-11-19 11:42 | PM.DS ---
DS: Admitting Diagnosis Admitting Diagnosis Admitting Diagnosis: Diverticulitis of large intestine with perforation and abscess without bleeding DS: Discharge Diagnosis Discharge Diagnosis (1) Abscess of sigmoid colon due to diverticulitis: Code(s): K57.20 - Diverticulitis of large intestine with perforation and abscess without bleeding Status: Acute Assessment and Plan: Patient has history of diverticulitis in the past. Found on CT abdomen to have a perforated sigmoid diverticulitis with a 7.0 x 3.7 cm perisigmoid abscess. Pt had a perc drain to be placed to his abscess which was removed prior to discharge. Pt started on Iv Zosyn and pain control. Wcc to come down today pt is feeling much better stool is more formed, pt discharged on oral augmentin with follow up with surgery. Hopeful discharge in 1-2 with outpatient colonoscopy Pt seen by surgery and dietican prior to discharge. (2) Sepsis: Code(s): A41.9 - Sepsis, unspecified organism Status: Resolved Assessment and Plan: Patient was found to be septic on arrival with leukocytosis, tachycardic heart rate, secondary to diverticulitis with an abscess (3) Acute renal insufficiency: Code(s): N28.9 - Disorder of kidney and ureter, unspecified Status: Resolved Assessment and Plan: Improved after iv fluids (4) Diabetes: Code(s): E11.9 - Type 2 diabetes mellitus without complications Status: Chronic Assessment and Plan: Continue Dm medications at home (5) Hypertension: Code(s): I10 - Essential (primary) hypertension Status: Chronic Assessment and Plan: Blood pressure is stable (6) Hyperlipidemia: Code(s): E78.5 - Hyperlipidemia, unspecified Status: Chronic Assessment and Plan: (7) Abnormal CT of the abdomen: Code(s): R93.5 - Abnormal findings on diagnostic imaging of other abdominal regions, including retroperitoneum Status: Acute Assessment and Plan: CT Abd/Pelvis on arrival showed 2.8 cm cystic lesion in the pancreatic head. The differential diagnosis includes pseudocyst, intraductal papillary mucinous neoplasm (IPMN), mucinous cystic neoplasm (MCN), and the less common serous cystadenoma and neuroendocrine tumor. DS: Summary Time Spent with Patient Time attestation: Total time spent providing and/or coordinating discharge services: 40 minutes on day of discharge Exam Const: General: no acute distress and tired appearing Nutritional Appearance: overweight Orientation/consciousness: oriented to person Resp: Effort & Inspection: no respiratory distress Auscultation: no rhonchi and no wheezes Cardio: Rate: regular rate Rhythm: regular rhythm GI: Inspection: normal to inspection Auscultation: normal bowel sounds Neuro: General: oriented to person DS: Data Data Completed and Pending Labs on day of discharge: Labs from last 24 hours 11/19/19 11/19/19 11/19/19 07:29 05:35 05:35 WBC 8.2 RBC 4.55 L Hgb 13.0 L Hct 39.3 L MCV 86.4 MCH 28.6 MCHC 33.1 RDW 14.1 Plt Count 241 MPV 10.1 Sodium 134 L Potassium 3.8 Chloride 96 L Carbon Dioxide 28 Anion Gap 13.8 BUN 13 Creatinine 1.20 Estim Creat Clear Calc 62 Estimated GFR 59 Glucose 166 H POC Capillary Glucose 188 H Calcium 9.1 11/18/19 11/18/19 20:19 16:29 WBC RBC Hgb Hct MCV MCH MCHC RDW Plt Count MPV Sodium Potassium Chloride Carbon Dioxide Anion Gap BUN Creatinine Estim Creat Clear Calc
[2019-11-19 11:45] LABS: Glucose Point of Care 213 (65-105)
[2019-11-19] MEDS: INSULIN ASPART (*BKC) 100 UNITS/ML SUB-Q (11:47)
--- NOTE | 2019-11-19 12:16 | PM.PNGS ---
Progress Note: A&P Assessment and Plan (1) Abscess of sigmoid colon due to diverticulitis: Code(s): K57.20 - Diverticulitis of large intestine with perforation and abscess without bleeding Status: Acute Assessment and Plan: doing well, dc drain, cont abx, low residue diet, ok to dc from surgical standpoint (2) Hypertension: Code(s): I10 - Essential (primary) hypertension Status: Acute Assessment and Plan: stable, mgmt per primary (3) Diabetes: Code(s): E11.9 - Type 2 diabetes mellitus without complications Status: Acute Assessment and Plan: stable, mgmt per primary (4) Sepsis: Code(s): A41.9 - Sepsis, unspecified organism Status: Acute Assessment and Plan: resolved Subjective Subjective Date/Time Seen: 11/19/19 12:16 feels good, naila low residue diet, +bowel fxn, minimal abd pain Review of Systems Constitutional: Constitutional: Reports fatigue, Reports lethargy and Reports weakness Cardiovascular: Cardiovascular: Denies chest pain Respiratory: Respiratory: Denies dyspnea Gastrointestinal: Gastrointestinal: Reports abdominal pain, Denies bloating, Denies constipation, Denies diarrhea, Denies nausea and Denies vomiting Exam Const: General: no acute distress Resp: Auscultation: clear to auscultation bilaterally Cardio: Rate: regular rate Rhythm: regular rhythm GI: Other: S, sl dist, minimal TTP lower abd, drain c no output (serous) Objective Data Vital Signs Vital Signs: Vital Signs - 24 hr 11/18/19 14:00 11/18/19 21:56 11/19/19 05:57 Temperature 36.8 C 36.4 C 36.7 C Pulse Rate 104 H 101 H 89 Respiratory Rate 12 16 14 Blood Pressure 143/77 H 147/83 H 147/71 H Pulse Oximetry 94 94 94 Intake/Output Intake/Output: Intake & Output 11/16/19 11/17/19 11/18/19 11/19/19 23:59 23:59 23:59 23:59 Intake Total 1150 2250 3710 490 Output Total 1200 30 2228 7 Balance -50 2220 1482 483 Meds/Results Medications: Active Medications Generic Name Dose Route Start Last Admin Trade Name Freq PRN Reason Stop Dose Admin Acetaminophen 650 mg 11/15/19 23:32 Tylenol Tablet PO Q4H PRN Mild Pain (1-3) or Fever Albuterol 2 puff 11/16/19 08:30 Proventil Hfa INHALATION PRN PRN Wheezing Dextrose 12.5 gm 11/16/19 08:32 Dextrose 50% Syringe IV PUSH PRN PRN Hypoglycemia Protocol Fentanyl Citrate 50 mcg 11/15/19 23:32 Sublimaze IV PUSH Q2H PRN Pain Rated 7-10 Glucagon 1 mg 11/16/19 08:32 Glucagon For Inj IM PRN PRN Hypoglycemia Protocol Glucose 15 gm 11/16/19 08:32 Glutose 15 PO PRN PRN Hypoglycemia Protocol Piperacillin/Tazobactam/Dextrose 3.375 gm in 50 mls @ 100 mls/hr 11/16/19 06:00 11/19/19 12:09 Zosyn 3.375 Gm/D5w 50ml Pm IVPB Infused Q6H SARA Infusion Dextrose 1,000 mls @ 100 mls/hr 11/16/19 08:32 Dextrose 5% 1,000 Ml IVPB PRN PRN Hypoglycemia Protocol Insulin Aspart 2 - 5 units 11/16/19 12:00 11/19/19 11:47 Novolog SUB-Q 2 units TIDWM SARA Administration Protocol Ondansetron HCl 4 mg 11/15/19 23:32 Zofran Inj IV PUSH Q4H PRN Nausea Ondansetron HCl 4 mg 11/17/19 12:21 Zofran Inj IV PUSH ONCE PRN Nausea Pantoprazole Sodium 40 mg 11/16/19 12:05 11/19/19 08:13 Protonix Iv IV PUSH 40 mg Q12HR SARA Administration Radiology Results: ITS Impressions Abdomen/Pelvis CT 11/16/19 14:58 IMPRESSION: 1. Perforated sigmoid diverticulitis with 7.0 x 3.7 cm perisigmoid abscess. 2. 2.8 cm cystic lesion in the pancreatic head. The differential diagnosis includes pseudocyst, intraductal papillary mucinous neoplasm (IPMN), mucinous cystic neoplasm (MCN), and the less common serous cystadenoma and neuroendocrine tumor. Follow-up dedicated pancreas protocol CT or MRI in six months is recommended. Catheter Placement CT 11/17/19
--- NOTE | 2019-11-19 14:04 | PCDIET ---
Percutaneous drain discontinued by Elidia Luis NP.
--- NOTE | 2019-11-19 14:09 | PC.NURSE ---
Outpatient referral started for Initial DSMT and MNT. [facility]axed [facility] and to Dr. Olivia.
== END 2019-11-19 14:15 | disposition home or self-care (01) | DRG 872 ==
LOC: ANHED 23:45 → ANH3MED 11-16 03:54
PROVIDERS: Family Medicine; Surgery; Admitting Provider Internal Medicine; Emergency Provider Emergency Medicine; PCP Family Medicine; Visit Provider Physician Assistant
DX: A41.9 Sepsis, unspecified organism (principal); K57.20 Diverticulitis of large intestine with perforation and abscess without bleeding; N28.9 Disorder of kidney and ureter, unspecified; E11.9 Type 2 diabetes mellitus without complications; I10 Essential (primary) hypertension; E78.5 Hyperlipidemia, unspecified; R93.5 Abnormal findings on diagnostic imaging of other abdominal regions, including retroperitoneum; I25.10 Atherosclerotic heart disease of native coronary artery without angina pectoris; J43.9 Emphysema, unspecified; Z96.653 Presence of artificial knee joint, bilateral; W19.XXXA Unspecified fall, initial encounter; Y93.E8 Activity, other personal hygiene; Z79.84 Long term (current) use of oral hypoglycemic drugs; Z79.82 Long term (current) use of aspirin; Z87.891 Personal history of nicotine dependence; Z88.2 Allergy status to sulfonamides
CPT/HCPCS: 36415; 74176; 75989; 80048; 80053; 81001; 83036; 83690; 85025; 85027; 85610; 85730; 87040; 87070; 87075; 87076; 87077; 87186; 87205; 93005; 96361; 96374; 99285; C1769; C9113; J1815; J2250; J2405; J2543; J3010; J7120

== ENCOUNTER 2020-01-08 14:00 | Outpatient (RCR) | payer OTHER, SELFPAY ==
[2020-01-01 13:06] VITALS: BMI 34.4
[2020-01-01 13:07] VITALS: BMI 34.4
== END 2020-03-22 11:20 | disposition home or self-care (01) ==
LOC: ANHDMC 14:00
PROVIDERS: PCP Family Medicine; Visit Provider Family Medicine
DX: E11.22 Type 2 diabetes mellitus with diabetic chronic kidney disease (principal); Z71.3 Dietary counseling and surveillance; Z71.89 Other specified counseling
CPT/HCPCS: 97802; G0108

== ENCOUNTER → 2020-06-16 12:58 | Outpatient (CLI) | payer OTHER, SELFPAY ==
--- NOTE | ~2020-06-16 | US_ITS ---
EXAMINATION: US retroperitoneal comp EXAM DATE: 06/16/2020 13:32 INDICATION: N18.30 - Chronic kidney disease, stage 3 unspecified . TECHNIQUE: Multiple grayscale and Doppler images of the kidneys were obtained (by a technologist who performed the scan) and subsequently reviewed. There is no prior study for comparison. FINDINGS: Right kidney: There is normal contour and echogenicity. It measures 11.6 x 5.0 x 5.1 centimeters. Th ere is a 9 mm cyst. There is no hydronephrosis. Left kidney: There is normal contour and echogenicity. It measures 11.4 x 5.7 x 5.8 centimeters. The re is an exophytic region contiguous to the kidney which could be an exophytic solid mass measuring 2 .2 x 2.5 x 1.6 cm. No evidence of this on CT scan last year. There is no hydronephrosis. Bladder unremarkable. IMPRESSION: 1. Possible solid exophytic left renal mass. 2. No hydronephrosis. Reviewed, dictated and finalized at location B. ER ROTARY DRUM CONTINUOUS PROCESS
== END ==
PROVIDERS: PCP Internal Medicine; Visit Provider Internal Medicine
DX: N18.30 Chronic kidney disease, stage 3 unspecified (principal)
CPT/HCPCS: 76770

== ENCOUNTER 2020-06-22 09:13 | Outpatient (CLI) | payer OTHER, SELFPAY ==
--- NOTE | 2020-07-06 14:44 | WPDHOMESLEEP ---
Sleep Study - Home Unattended Date of Study: 06/22/20 Ordering Provider: Ovidio Guo MD Interpreting Provider: Alfreda Nix MD Home Sleep Study Type: Apnea Link Air Height: 1.8 m Weight: 111.13 kg Body Mass Index: 34.2 Neck Circumference (inches): 19.5 Drums: 6 Reason for Sleep Study Falls asleep easily Sleep History Goldy Piedra is a 74 year old man who falls asleep easily. He is is not sure if he snores, as he sleeps in another room and no one tells him if he snores. He has acid reflux, and takes antacids regularly.. He rarely has trouble sleeping with a cold. He does not wake up gasping for breath at night. He does not have breathing problems at night observed by others. He occasionally sweats excessively at night. He does not notice his heart pounding or beating irregularly night. He occasionally falls asleep during the day, occasionally involuntarily, rarely while driving the car. He does not fall asleep while exerting physical effort. He does not experience loss of muscle tone with strong emotion. He does not have daytime difficulties due to excessive sleepiness, he is retired. He does not feel paralyzed on waking or falling asleep. He does not have vivid dreamlike scenes upon awakening or falling asleep. He does not feel afraid to go to sleep. He occasionally has nightmares. He occasionally remembers his dreams. He frequently has racing thoughts. He rarely feels sad or depressed. On occasion he has anxiety. He rarely has muscular tension. He does not notice parts of his body jerking and he does not kick at night. He does not have crawling and aching feelings in his legs. He rarely has any kind of leg pain at night. He does not have morning jaw pain. He rarely grinds his teeth during sleep. He rarely is bothered by pain during the day. He rarely is awakened by pain at night. He does not wake up feeling stiff in the morning with sore or achy muscles and does not wake up with pain in the neck or spine. He has dizziness, sexual problems, and only occasionally wakes up feeling refreshed. He occasionally has memory concentration problems. Normal bedtime is 9:30 p.m., falling asleep within 45 minutes to an hour. He typically wakes twice at night. He is usually able to get back to sleep quickly. He wakes at 5 in the morning. His weekend schedule is the same. He estimates getting 6 hours of sleep at night. He does take naps. A short 10-15 minute nap might be refreshing. He is usually drowsy in the morning for [address] [facility] Past Medical History Medical History Abscess of sigmoid colon due to diverticulitis CAD (coronary artery disease) Had cardiac cath which showed stenosis, but no PCI placed Diabetes Diverticulitis Emphysema of lung Hyperlipidemia Hypertension Surgical History Surgical History History of back surgery In Apr 2019 at [facility] History of carpal tunnel release Hx of cardiac cath Hx of colonoscopy Hx of hemorrhoidectomy Hx of repair of right rotator cuff Hx of total knee arthroplasty Bilateral Family History Family History Father Diabetes mellitus Heart attack Sibling Malignant neoplasm of prostate Sibling Diabetes mellitus Cancer Social History Social History Smoking packs per day: 1.5 Smoking cigarettes per day: 30.0 Years smoked: 42 Smoking pack-years: 63.00 Smoking status: Former smoker (quit 16 years ago. ) Tobacco type: cigarettes Smoking end date: 04/23/03 Alcohol intake: never Substance use: never Additional living arrangements comments: Lives in [place] with , Annette Additional occupation/education comments: Worked at [employer] in [place] Gender identity (if verbalized by the patient): Mal
[2020-07-12 18:21] VITALS: BMI 34.2
== END 2020-06-22 09:14 | disposition home or self-care (01) ==
LOC: ANHCSM 09:13
PROVIDERS: Family Provider Family Medicine; PCP Internal Medicine; Visit Provider Internal Medicine
DX: G47.33 Obstructive sleep apnea (adult) (pediatric) (principal); G47.10 Hypersomnia, unspecified; I25.10 Atherosclerotic heart disease of native coronary artery without angina pectoris; E11.9 Type 2 diabetes mellitus without complications; K57.92 Diverticulitis of intestine, part unspecified, without perforation or abscess without bleeding; J43.9 Emphysema, unspecified; E78.5 Hyperlipidemia, unspecified; I10 Essential (primary) hypertension; Z87.891 Personal history of nicotine dependence; Z79.899 Other long term (current) drug therapy
CPT/HCPCS: 95806

== ENCOUNTER → 2020-06-25 11:25 | Outpatient (CLI) | payer OTHER, SELFPAY ==
--- NOTE | ~2020-06-25 | MR_ITS ---
EXAMINATION: MR abdomen wo con DATE: 06/25/2020 12:15 INDICATION: Disease of pancreas, unspecified. TECHNIQUE: Magnetic resonance imaging (MRI) of the abdomen was performed without intravenous contrast . Sequences included coronal T2-weighted FS FSE, coronal and axial FS FIESTA, axial T2-weighted FSE, coronal LAVA-flex, axial STIR FSE, axial DWI, axial dual-echo T1-weighted FSPGR, and axial LAVA. COMPARISON: Ultrasound kidneys 06/12/2020, CT abdomen and pelvis 11/15/2019, 11/25/12 FINDINGS: There is diffuse hepatic steatosis. There is a 2.4 x 1.2 cm mass in the head of the pancreas, decreas ed from 2.9 x 2.9 cm on 11/15/2019. The gallbladder, spleen, adrenal glands, and right kidney are norm al. There is a 6 mm cyst in left kidney. There are no dilated loops of bowel. There are no pathologic ally enlarged lymph nodes. There is no free intraperitoneal fluid. IMPRESSION: 1. 2.4 x 1.2 cm pancreatic mass, decreased from 2.9 x 2.9 cm on 11/15/2019, most likely a benign lesio n such as chronic pancreatitis. 2. Diffuse hepatic steatosis. Reviewed, dictated and finalized at location A. H EXAMINER MACHINE IMPRESSION: 1. 2.4 x 1.2 cm pancreatic mass, decreased from 2.9 x 2.9 cm on 11/15/2019, most likely a benign lesion such as chronic pancreatitis. 2. Diffuse hepatic steatosis.
== END ==
PROVIDERS: PCP Internal Medicine; Visit Provider Internal Medicine
DX: K86.9 Disease of pancreas, unspecified (principal); K76.0 Fatty (change of) liver, not elsewhere classified
CPT/HCPCS: 74181

== ENCOUNTER → 2020-07-23 05:06 | Outpatient (CLI) | payer OTHER, SELFPAY ==
[2020-07-23 19:21] LABS: SARS-CoV-2 RNA PCR Negative
== END ==
PROVIDERS: Internal Medicine Critical Care Medicine; PCP Internal Medicine; Visit Provider Internal Medicine Gastroenterology
DX: Z01.812 Encounter for preprocedural laboratory examination (principal); Z20.822 Contact with and (suspected) exposure to COVID-19
CPT/HCPCS: C9803; U0003; U0005

== ENCOUNTER 2020-07-26 00:33 | Day surgery (SDC) | payer OTHER, SELFPAY ==
[2020-07-13 13:21] VITALS: BMI 33.8
[2020-07-26 06:37] VITALS: BP 149/84; PULSE 97; RESP 20; TEMP 35.8; O2SAT 98; BMI 32.8
[2020-07-26] MEDS: LACTATED RINGERS 1,000 ML 150 ML IV CONT (06:56)
--- NOTE | 2020-07-26 07:16 | WPDANESEPPF ---
Anes - Initial Pre Proc Eval Procedure: Operation Date: 07/26/20 07:30 Proposed Procedures p Esophagogastroduodenoscopy & Screening Colonoscopy - Byron Biswas MD Date/Time: 07/26/20 07:16 Surgeon: Byron Biswas MD Pre Op Diagnosis: Neoplasm Screening, GERD Patient Data Age: 74 Gender: M Height: 5 ft 11 in Weight: 107 kg Last Vital Signs Temp 96.4 F L 07/26/20 06:37 Pulse 97 07/26/20 06:37 Resp 20 07/26/20 06:37 BP 149/84 H 07/26/20 06:37 Pulse Ox 98 07/26/20 06:37 Allergies Allergy/AdvReac Type Severity Reaction Status Date / Time Sulfa (Sulfonamide Allergy Unknown Swelling Verified 07/26/20 06:35 Antibiotics) of Lip/Tongue/Throat sulfur dioxide Allergy Unknown Swelling Verified 07/26/20 06:35 of Lip/Tongue/Throat codeine Allergy Vomiting Verified 07/26/20 06:35 Home Medications Medication Instructions Recorded Confirmed Type Adult Low Dose Aspirin 81 mg PO DAILY 11/16/19 07/13/20 History metoprolol succinate 50 mg PO DAILY 11/16/19 07/13/20 History fluticasone fur. 100 mcg-umeclid 1 inh INHALATION DAILY #60 ea 05/14/20 07/13/20 Rx 62.5 mcg-vilant 25 mcg inhalat.powder cholecalciferol (vitamin D3) 1,250 50,000 unit PO WEEKLY #14 cap 06/03/20 07/13/20 Rx mcg (50,000 unit) capsule omeprazole 40 mg capsule,delayed 40 mg PO DAILY #90 cap 06/09/20 07/13/20 Rx release semaglutide 3 mg tablet 3 mg PO DAILY 30 Days #30 tablet 06/09/20 07/13/20 Rx simvastatin 20 mg PO DAILY 07/13/20 07/13/20 History metformin 500 mg tablet,extended See Rx Instructions .ROUTE 07/20/20 07/26/20 Rx release 24 hr .COMPLEX #360 tablet blood sugar diagnostic See Rx Instructions .ROUTE 07/21/20 Rx .COMPLEX #200 strip losartan 100 mg tablet See Rx Instructions .ROUTE 07/21/20 07/26/20 Rx .COMPLEX #90 tablet Patient hx anesthesia problems: none Family hx anesthesia problems: none [facility] Past Medical History Medical History Abscess of sigmoid colon due to diverticulitis CAD (coronary artery disease) Had cardiac cath which showed stenosis, but no PCI placed Diabetes Diverticulitis Emphysema of lung Hyperlipidemia Hypertension Surgical History Surgical History History of back surgery In Apr [address] [facility] History of carpal tunnel release Hx of cardiac cath Hx of colonoscopy Hx of hemorrhoidectomy Hx of repair of right rotator cuff Hx of total knee arthroplasty Bilateral Family History Family History Father Diabetes mellitus Heart attack Sibling Malignant neoplasm of prostate Sibling Diabetes mellitus Cancer Social History Social History Smoking packs per day: 1.5 Smoking cigarettes per day: 30.0 Years smoked: 42 Smoking pack-years: 63.00 Smoking status: Former smoker Tobacco type: cigarettes Smoking end date: 04/23/03 Alcohol intake: never Substance use: never Substance use type: does not use Living arrangements: with family Additional living arrangements comments: Lives in [place] with , Annette Additional occupation/education comments: Worked at [employer] in [place] Gender identity (if verbalized by the patient): Male Sexual Orientation (if Verbalized by the Patient): Straight or Heterosexual Spiritual care concerns: No Anes - Eval Final PreProcedure Day of Procedure 07/26/20 07:16 Patient weight: obese Heart: regular rate and rhythm Lungs: clear to auscultation Airway: Mallampati scale class II Neurological: alert and oriented Last oral intake: >/= 8 hours ASA classification: III Emergent: no Anesthetic plan: proceed Anesthesia type and monitoring: general GIVS and standard monitoring Informed Consent: The patient's anestheti
[2020-07-26 07:36] LABS: Glucose Point of Care 164 (65-105)
--- NOTE | 2020-07-26 07:37 | PM.HPGS ---
History of Present Illness History of Present Illness Consent: Risks, benefits, and alternatives have been discussed and questions answered. Patient agrees to proceed with procedure. Chief complaint: Neoplasm Screening, GERD Narrative: Goldy Piedra is a 74 year old male with gerd but better with ppi, never had egd. Last colonoscopy about 5-6 years ago. Review of Systems Constitutional: Constitutional: Denies headache(s) and Denies weakness Eyes: Eyes: Denies blurry vision ENT: Reports Normal hearing present, Denies headache(s) and Denies neck pain Cardiovascular: Cardiovascular: Denies chest pain and Denies dyspnea Respiratory: Respiratory: Denies dyspnea Gastrointestinal: Gastrointestinal: Reports no additional gastrointestinal complaints Genitourinary: Genitourinary: Denies dysuria Musculoskeletal: Musculoskeletal: Denies neck pain Integumentary/Breasts: Skin/Breast: Denies dry skin Neurologic: Reports Normal hearing present, Denies headache(s) and Denies weakness Psychiatric: Psychiatric: Denies anxiety Endocrine: Endocrine: Denies change in body appearance Hematologic/Lymphatic: Hematologic/Lymphatic: Denies easy bleeding Allergic/Immunologic: Allergic/Immunologic: Denies urticaria PMFSH Past Medical History Medical History Abscess of sigmoid colon due to diverticulitis CAD (coronary artery disease) Had cardiac cath which showed stenosis, but no PCI placed Diabetes Diverticulitis Emphysema of lung Hyperlipidemia Hypertension Surgical History Surgical History History of back surgery In Apr 2019 at [facility] History of carpal tunnel release Hx of cardiac cath Hx of colonoscopy Hx of hemorrhoidectomy Hx of repair of right rotator cuff Hx of total knee arthroplasty Bilateral Family History Family History Father Diabetes mellitus Heart attack Sibling Malignant neoplasm of prostate Sibling Diabetes mellitus Cancer Social History Social History Smoking packs per day: 1.5 Smoking cigarettes per day: 30.0 Years smoked: 42 Smoking pack-years: 63.00 Smoking status: Former smoker Tobacco type: cigarettes Smoking end date: 04/23/03 Alcohol intake: never Substance use: never Substance use type: does not use Living arrangements: with family Additional living arrangements comments: Lives in [place] with Annette Additional occupation/education comments: Worked at [employer] in [place] Gender identity (if verbalized by the patient): Male Sexual Orientation (if Verbalized by the Patient): Straight or Heterosexual Spiritual care concerns: No Meds Home Medications and Allergies Home Medications Medication Instructions Recorded Confirmed Type Adult Low Dose Aspirin 81 mg PO DAILY 11/16/19 07/13/20 History metoprolol succinate 50 mg PO DAILY 11/16/19 07/13/20 History fluticasone fur. 100 mcg-umeclid 1 inh INHALATION DAILY #60 ea 05/14/20 07/13/20 Rx 62.5 mcg-vilant 25 mcg inhalat.powder cholecalciferol (vitamin D3) 1,250 50,000 unit PO WEEKLY #14 cap 06/03/20 07/13/20 Rx mcg (50,000 unit) capsule omeprazole 40 mg capsule,delayed 40 mg PO DAILY #90 cap 06/09/20 07/13/20 Rx release semaglutide 3 mg tablet 3 mg PO DAILY 30 Days #30 tablet 06/09/20 07/13/20 Rx simvastatin 20 mg PO DAILY 07/13/20 07/13/20 History metformin 500 mg tablet,extended See Rx Instructions .ROUTE 07/20/20 07/26/20 Rx release 24 hr .COMPLEX #360 tablet blood sugar diagnostic See Rx Instructions .ROUTE 07/21/20 Rx .COMPLEX #200 strip losartan 100 mg tablet See Rx Instructions .ROUTE 07/21/20 07/26/20 Rx .COMPLEX #90 tablet Allergies Allergy/AdvReac Type Severity Reaction Status Date / Time Sulfa (Sulfonamide A
[2020-07-26 08:02] VITALS: BP 123/78; PULSE 97; RESP 14; O2SAT 96
[2020-07-26 08:12] VITALS: BP 144/85; PULSE 91; RESP 17; O2SAT 97
[2020-07-26 08:22] VITALS: BP 147/75; PULSE 83; RESP 16; O2SAT 99
== END 2020-07-26 08:51 | disposition home or self-care (01) ==
PROVIDERS: PCP Internal Medicine; Visit Provider Internal Medicine Gastroenterology
PROC: 0DJ08ZZ Inspection of Upper Intestinal Tract, Via Natural or Artificial Opening Endoscopic (ICD-10-PCS; CPT 43235; principal; 2020-07-26 07:30)
DX: Z12.11 Encounter for screening for malignant neoplasm of colon (principal); D12.2 Benign neoplasm of ascending colon; K63.5 Polyp of colon; K21.00 Gastro-esophageal reflux disease with esophagitis, without bleeding; K44.9 Diaphragmatic hernia without obstruction or gangrene; K57.30 Diverticulosis of large intestine without perforation or abscess without bleeding; K64.8 Other hemorrhoids; Z79.82 Long term (current) use of aspirin; Z79.84 Long term (current) use of oral hypoglycemic drugs; I25.10 Atherosclerotic heart disease of native coronary artery without angina pectoris; E11.9 Type 2 diabetes mellitus without complications; K57.92 Diverticulitis of intestine, part unspecified, without perforation or abscess without bleeding; J43.9 Emphysema, unspecified; E78.5 Hyperlipidemia, unspecified; I10 Essential (primary) hypertension; Z87.891 Personal history of nicotine dependence; E66.9 Obesity, unspecified; Z68.32 Body mass index [BMI] 32.0-32.9, adult
CPT/HCPCS: 43239; 45385; 88305; C9803; J2704; J7120; U0003; U0005

== ENCOUNTER → 2020-08-02 02:52 | Outpatient (CLI) | payer OTHER, SELFPAY ==
[2020-08-02 19:42] LABS: SARS-CoV-2 RNA PCR Negative
== END ==
PROVIDERS: PCP Internal Medicine; Visit Provider Internal Medicine Critical Care Medicine
DX: Z01.812 Encounter for preprocedural laboratory examination (principal); Z20.822 Contact with and (suspected) exposure to COVID-19
CPT/HCPCS: C9803; U0003; U0005

== ENCOUNTER 2020-08-04 09:03 | Outpatient (CLI) | payer OTHER, SELFPAY ==
--- NOTE | 2020-08-23 15:52 | WPDSLEEPSTUD ---
Sleep Study Date of Study: 08/04/20 Ordering Provider: Ovidio Guo MD Interpreting Physician: Alfreda Nix MD Sleep Study Type: CPAP Titration Height: 1.8 m Weight: 111.13 kg Body Mass Index: 34.2 Neck Circumference (inches): 19.5 Hannah: 6 Reason for Sleep Study Home sleep test June 22, 2020 with moderate DANE, AHI 22 mainly central apneas and mixed apneas, 83% minimum saturation, 48 minutes below 88%, he presents now for CPAP titration Sleep History Goldy Piedra is a 74 year old man who falls asleep easily. He is is not sure if he snores, as he sleeps in another room and no one tells him if he snores. He has acid reflux, and takes antacids regularly.. He rarely has trouble sleeping with a cold. He does not wake up gasping for breath at night. He does not have breathing problems at night observed by others. He occasionally sweats excessively at night. He does not notice his heart pounding or beating irregularly night. He occasionally falls asleep during the day, occasionally involuntarily, rarely while driving the car. He does not fall asleep while exerting physical effort. He does not experience loss of muscle tone with strong emotion. He does not have daytime difficulties due to excessive sleepiness, he is retired. He does not feel paralyzed on waking or falling asleep. He does not have vivid dreamlike scenes upon awakening or falling asleep. He does not feel afraid to go to sleep. He occasionally has nightmares. He occasionally remembers his dreams. He frequently has racing thoughts. He rarely feels sad or depressed. On occasion, he has anxiety. He rarely has muscular tension. He does not notice parts of his body jerking and he does not kick at night. He does not have crawling and aching feelings in his legs. He rarely has any kind of leg pain at night. He does not have morning jaw pain. He rarely grinds his teeth during sleep. He rarely is bothered by pain during the day. He rarely is awakened by pain at night. He does not wake up feeling stiff in the morning with sore or achy muscles and does not wake up with pain in the neck or spine. He has dizziness, sexual problems, and only occasionally wakes up feeling refreshed. He occasionally has memory concentration problems. Normal bedtime is 9:30 p.m., falling asleep within 45 minutes to an hour. He typically wakes twice at night. He is usually able to get back to sleep quickly. He wakes at 5 in the morning. His weekend schedule is the same. He estimates getting 6 hours of sleep at night. He does take naps. A short 10-15 minute nap might be refreshing. He is usually drowsy in the morning for 1 hour. [facility] Past Medical History Medical History Abscess of sigmoid colon due to diverticulitis CAD (coronary artery disease) Had cardiac cath which showed stenosis, but no PCI placed Colon cancer screening Diabetes Diverticulitis Emphysema of lung Hyperlipidemia Hypertension Surgical History Surgical History History of back surgery In Apr 2019 at [facility] History of carpal tunnel release Hx of cardiac cath Hx of colonoscopy Hx of hemorrhoidectomy Hx of repair of right rotator cuff Hx of total knee arthroplasty Bilateral Family History Family History Father Diabetes mellitus Heart attack Sibling Malignant neoplasm of prostate Sibling Diabetes mellitus Cancer Social History Social History Smoking packs per day: 1.5 Smoking cigarettes per day: 30.0 Years smoked: 42 Smoking pack-years: 63.00 Smoking status: Former smoker Tobacco type: cigarettes Smoking end date: 04/23/03 Alcohol intake: never Substance use: never Substance use type: does not use Additional living arrangements comments: Lives in [place] with [facility]
[2020-08-23 18:18] VITALS: BMI 34.2
== END 2020-08-04 09:04 | disposition home or self-care (01) ==
LOC: ANHCSM 09:04
PROVIDERS: PCP Internal Medicine; Visit Provider Internal Medicine
DX: G47.33 Obstructive sleep apnea (adult) (pediatric) (principal)
CPT/HCPCS: 95811

== ENCOUNTER 2020-12-23 08:10 | Outpatient (CLI) | payer OTHER, SELFPAY ==
--- NOTE | ~2020-12-23 | US_ITS ---
EXAMINATION: US arterial ankle brachial ind DATE: 12/23/2020 08:59 INDICATION: Peripheral vascular disease with risk factors of hypertension, prior smoking, hypercholes terolemia and diabetes. TECHNIQUE: Segmental pressures and plethysmographic and Doppler waveforms of the brachial and lower e xtremity arteries were obtained. COMPARISON: None. FINDINGS: Right and left brachial artery pressures of 136 mm Hg and 148 mm Hg, respectively, are concordant (no rmal difference <= 30 mmHg). The right ankle-brachial index (MARIAMA) is 0.78 (normal >= 0.9-1.0). The right great toe-brachial index (TBI) is 0.47 (normal >= 0.65). Arterial Doppler waveforms are biphasic with brisk systolic upstrokes at both the right posterior tibial and dorsalis pedis arteries. The left MARIAMA is 0.67. The left TBI is 0.64. Arterial Doppler waveforms are biphasic with brisk systol ic upstrokes of both with posterior tibial and dorsalis pedis arteries. IMPRESSION: 1. Arterial occlusive disease to the bilateral lower limbs with mildly decreased right and moderately decreased left ABIs. Reviewed, dictated and finalized at location A. IMPRESSION: 1. Arterial occlusive disease to the bilateral lower limbs with mildly decrease d right and moderately decreased left ABIs.
== END 2020-12-23 08:11 | disposition home or self-care (01) ==
LOC: ANHIMG 08:11
PROVIDERS: PCP Internal Medicine; Visit Provider Internal Medicine
DX: I70.203 Unspecified atherosclerosis of native arteries of extremities, bilateral legs (principal)
CPT/HCPCS: 93922

== ENCOUNTER 2021-05-06 12:34 | Outpatient (CLI) | payer OTHER, SELFPAY ==
--- NOTE | 2021-05-06 12:43 | ECHO_ITS ---
Patient Info Name: Goldy Piedra Age: 75 years : 1945 Gender: Male Ht: 70 in Wt: 245 lbs BSA: 2.38 m2 HR: 79 bpm BP: 137 / 84 mmHg Technical Quality: Fair Exam Date: 05/06/2021 12:56 PM Exam Location: [facility] Patient Status: Outpatient Admit Date: 05/06/2021 Staff Ordering Physician: Christoph Ellis DO Senior Property Manager: Josephine Hebert RDCS Attending Provider: Christoph Ellis DO Referring Physician: Caleb CHILDERS; Exam Type: CA echo doppler color flow Study Info Indications I25.10 - Atherosclerotic heart disease of ione coronary artery without angina pectoris Complete two-dimensional, color flow and Doppler transthoracic echocardiogram is performed. Summary 1. Complete two-dimensional, color flow and Doppler transthoracic echocardiogram is performed. 2. Left ventricular chamber dimension is normal. 3. Left ventricular systolic function is normal, estimated at 60-65%. 4. The left ventricular diastolic function is grade I diastolic dysfunction. 5. E/e' 14 is mildly elevated. 6. Global longitudinal strain is normal at -17.1%. 7. There is trace aortic valve regurgitation. 8. There is trace mitral valve regurgitation. 9. No pulmonary hypertension, estimated pulmonary arterial systolic pressure is 21 mmHg. Left Ventricle E/e' 14 is mildly elevated. Global longitudinal strain is normal at -17.1%. Left ventricular chamber dimension is normal. Left ventricular systolic function is normal, estimated at 60-65%. The left ventricular diastolic function is grade I diastolic dysfunction. Right Ventricle Right ventricular chamber dimension is normal. Right ventricular systolic function is normal. Left Atria Left atrial chamber dimension is normal. Right Atria Right atrial chamber dimension is normal. Aortic Valve The aortic valve is trileaflet. There is no aortic valve stenosis. There is trace aortic valve regurgitation. Pulmonic Valve There is no pulmonic regurgitation. Mitral Valve There is no mitral valve stenosis. There is trace mitral valve regurgitation. Tricuspid Valve There is no tricuspid valve regurgitation. No pulmonary hypertension, estimated pulmonary arterial systolic pressure is 21 mmHg. Pericardium/Pleural There is no pericardial effusion. Inferior Vena Cava Normal inferior vena cava with >50% collapse upon inspiration consistent with normal right atrial pressure, 5 mmHg. Aorta The aortic root size at the sinus of Valsalva is normal. Left Ventricular Outflow Tract Name Value Normal LVOT 2D LVOT Diameter 2.0 cm LVOT Doppler LVOT Peak Gradient 6 mmHg LVOT Mean Gradient 4 mmHg LVOT VTI 26 cm LVOT VTI/AV VTI Ratio 0.8 LVOT Stroke Volume 78 ml LVOT CO 5.8 l/min LVOT CI 2.4 l/min/m2 Pulmonic Valve Name Value Normal
== END 2021-05-06 12:35 | disposition home or self-care (01) ==
PROVIDERS: PCP Internal Medicine; Visit Provider Internal Medicine Cardiovascular Disease
DX: I25.10 Atherosclerotic heart disease of native coronary artery without angina pectoris (principal)
CPT/HCPCS: 93306

== ENCOUNTER 2022-01-17 10:30 | Outpatient (RCR) | payer OTHER, SELFPAY ==
[2021-12-29 10:54] VITALS: BMI 34.9
[2021-12-29 11:32] VITALS: BMI 34.9
== END 2022-02-13 10:15 | disposition home or self-care (01) ==
LOC: ANHDMC 10:30
PROVIDERS: PCP Internal Medicine Cardiovascular Disease; Visit Provider Internal Medicine Endocrinology, Diabetes & Metabolism
DX: E11.22 Type 2 diabetes mellitus with diabetic chronic kidney disease (principal); Z71.89 Other specified counseling; Z71.3 Dietary counseling and surveillance
CPT/HCPCS: 97802; G0108

== ENCOUNTER → 2022-01-17 11:29 | Outpatient (CLI) | payer OTHER, SELFPAY ==
--- NOTE | ~2022-01-17 | XR_ITS ---
EXAMINATION: XR toe 1st RT min 2V INDICATION: Right first toe pain TECHNIQUE: Four views of the right first toe are obtained. COMPARISON: None available FINDINGS: Bone alignment is normal. There is no fracture. There is moderate osteoarthritis at the fir st metatarsophalangeal joint. The soft tissues are unremarkable. IMPRESSION: 1. Osteoarthritis without acute osseous abnormality. Reviewed, dictated and finalized at location A.
== END ==
PROVIDERS: PCP Internal Medicine; Visit Provider Podiatrist Foot & Ankle Surgery
DX: M19.071 Primary osteoarthritis, right ankle and foot (principal)
CPT/HCPCS: 73660

== ENCOUNTER → 2022-03-22 13:12 | Outpatient (CLI) | payer OTHER, SELFPAY ==
--- NOTE | ~2022-03-22 | XR_ITS ---
XR hip RT min 2V 03/22/2022 13:36 Indication: Right hip pain Procedure: 2 views right hip Comparison: 10/11/2019 Findings: No fracture, subluxation or dislocation. Pelvic rings are intact. There is atherosclerosis. There is anatomic alignment. No significant soft tissue abnormality. Impression: 1: No significant bone or joint abnormality. Reviewed, dictated and finalized at location A. OR COBOL DEVELOPER Impression: 1: No significant bone or joint abnormality.
== END ==
PROVIDERS: PCP Internal Medicine; Visit Provider Internal Medicine
DX: M25.551 Pain in right hip (principal)
CPT/HCPCS: 73502

== ENCOUNTER 2022-04-04 10:26 | Outpatient (RCR) | payer OTHER, SELFPAY | END 2022-04-04 12:13 | disposition home or self-care (01) | LOC: ANHDMC 10:26 | PROVIDERS: PCP Internal Medicine; Visit Provider Internal Medicine Endocrinology, Diabetes & Metabolism | DX: E11.22 Type 2 diabetes mellitus with diabetic chronic kidney disease (principal); Z71.89 Other specified counseling | CPT/HCPCS: G0108 ==

== ENCOUNTER 2022-05-23 11:15 | Outpatient (RCR) | payer OTHER, SELFPAY ==
--- NOTE | 2022-05-03 10:36 | PTOPEVAL1 ---
Assessment and note entered by Caterina Burger, PT Evaluation Information Assessment Status Evaluation Diagnosis R hip pain, chronic pain Onset November 2021 Subjective Information gradual increase in hip and back pain; no trauma or injury to back; had R hip xray which was negative; started using the quad cane due to more pain; walk better with pushing a grocery cart; does not do any exercises at home, mostly watches TV; Reported Pain Level Pain Score Self Report Additional Pain Score Comments pain range in the past week 0-10/10; low back, R hip and into R leg -- tingle and pain to anterior thigh, distal to knee; pain increases with walking over 15-20 min; sleeping disrupted due to pain, awake all night because cannot get comfortable, to sleeping OK; position change does not help pain; sitting on couch is OK and not have pain; take over the counter counter pain meds; heat/ ice not help; Assessment PT Clinical Summary Luis has the diagnosis of R hip and chronic pain. His history includes B TKR, back surgery. He reports gradual increase in his pain, with radicular pain into R LE to below knee-- intermittent. The hip xray was negative. He is walking with the cane now due to pain, previously did not use a device. Oswestry self assessment functional score of 54% limitation in activity level. With the evaluation, he has decreased lumbar spinal mobility, tightness of hips and weakness over trunk and hips; 2 minute walking distance is 200'. Skilled PT services are indicated for modalities to decrease pain, therapeutic exercises to increase the strength and flexibility of his trunk and hips. Plan of Care Interventions Electrical Stimulation,Gait Training,Hot Pack/Cold Pack,Manual Therapy,Mechanical Traction,Neuro Re- education,Patient/Caregiver Education,Therapeutic Activities,Therapeutic Exercise,Ultrasound PT Services Indicated Yes Treatment Frequency and 1x/wk for 6 weeks, per pt request, due to copay of Duration insurance These treatments will address the objective and functional deficits as defined above. The patient will be advanced safely and appropriately in order for the patient to progress towards his/her prior level of function. Additional exercises will be introduced and as well a
--- NOTE | 2022-05-29 15:07 | PCPTNOTE ---
PHYSICAL THERAPY DISCHARGE 05-29-22 Attending Provider: Allyson Franco PA-C Patient:Goldy Piedra Date of :1945 Luis called today and left a message, stated he was doing better and canceled his PT appointments; therefore he will be discharged at this time. He has received 3 PT sessions, from May 03 to , for the diagnosis of R hip pain. The goals were not assessed. Thank you for referring this patient to [facility].
== END 2022-05-31 12:17 | disposition home or self-care (01) ==
LOC: ANHPT 11:15
PROVIDERS: PCP Family Medicine; Visit Provider Physician Assistant
DX: M25.551 Pain in right hip (principal); G89.29 Other chronic pain
CPT/HCPCS: 97014; 97110; 97161; 97530; G0283

== ENCOUNTER → 2023-01-18 10:07 | Outpatient (CLI) | payer OTHER, SELFPAY ==
--- NOTE | ~2023-01-18 | MR_ITS ---
MRI of the right hip Clinical history: Pain Technique: Coronal T1-weighted, T2-weighted, and proton-density fat-sat images, and axial T1-weighted and proton-density fat-sat images were acquired through the pelvis. Coronal T2-weighted images and c oronal, axial, and sagittal proton-density fat-sat images were acquired through the right hip. Findings: There is no fracture contrast anastomosis, or avascular necrosis of either hip. Bone marrow signals of the proximal femora and visualized pelvic bones are unremarkable. No significant degenera tive change of the hip joints. No joint effusion. Visualized musculature about the pelvis and right hip is unremarkable. No muscle atrophy or edema joaquin ntified. Visualized tendons are intact. No evidence for bursitis. No soft tissue mass or fluid collec tion. IMPRESSION: No significant abnormality seen. Reviewed, dictated and finalized at [facility].
== END ==
PROVIDERS: PCP Anesthesiology Pain Medicine; Visit Provider Anesthesiology Pain Medicine
DX: M25.551 Pain in right hip (principal)
CPT/HCPCS: 73721

== ENCOUNTER 2023-11-22 10:01 | Outpatient (CLI) | payer OTHER, SELFPAY ==
--- NOTE | ~2023-11-22 | MR_ITS ---
MRI of the lumbar spine Clinical History: Inflammatory spondylopathy Technique: Axial T2-weighted images, and sagittal T1-weighted, T2-weighted, and T2 fat-sat images wer e acquired. COMPARISON: 03/17/2019 Findings: There is no fracture or sublocation of the lumbar spine. Osseous alignment is unchanged. No suspicious bone marrow signal abnormality seen. At L1-L2, there is diffuse disc bulge and severe facet arthropathy, resulting in severe spinal canal stenosis/thecal sac compression. There is moderate to advanced right neural foraminal narrowing. Ther e is preservation left neural foramen. At L2-L3, there is diffuse disc bulge, with moderate facet arthropathy. No central canal stenosis. Th ere is moderate bilateral neural foraminal narrowing. At L3-L4, there is degenerative disc narrowing with mild diffuse disc bulge and moderate facet arthro holli. No central canal stenosis. There is severe bilateral neural foraminal narrowing. Probable prio r posterior decompression. At L4-L5, there is advanced degenerative disc narrowing. There is minimal disc bulge with moderate fa cet arthropathy. No central canal stenosis or definite neural foraminal narrowing. At L5-S1, there is no disc bulge or herniation. There is moderate facet arthropathy. No central canal stenosis or neural foraminal narrowing. Paravertebral soft tissues are unremarkable. Impression: Severe degenerative spondylosis at L1-L2, as detailed above. Additional moderate degenerative changes, as above. Probable prior posterior decompression at L3-L4. Reviewed, dictated and finalized at [facility]. Impression: Severe degenerative spondylosis at L1-L2, as detailed above. Additional moderate degenerative changes, as above. Probable prior posterior de compression at L3-L4.
== END 2023-11-22 10:02 ==
PROVIDERS: PCP Family Medicine; Visit Provider Physician Assistant Medical
DX: M46.96 Unspecified inflammatory spondylopathy, lumbar region (principal); M47.896 Other spondylosis, lumbar region
CPT/HCPCS: 72148

== ENCOUNTER 2024-07-25 13:52 | Outpatient (CLI) | payer OTHER, SELFPAY ==
--- NOTE | ~2024-07-25 | US_ITS ---
EXAMINATION: US art doppler w press LE BI DATE: 07/25/2024 15:14 INDICATION: Peripheral vascular disease TECHNIQUE: Segmental pressures and plethysmographic and Doppler waveforms of the brachial and lower e xtremity arteries were obtained. COMPARISON: None. FINDINGS: Right and left brachial artery pressures of 134 mm Hg and 137 mm Hg, respectively, are concordant (no rmal difference <= 30 mmHg). The right and left high-thigh pressure indices are 0.59 and 0.69, respec tively (normal > 1.2). The right ankle-brachial index (MRAIAMA) is 0.77 (normal >= 0.9-1). The right great toe-brachial index (T BI) is 0.10 (normal >= 0.6-0.8). Arterial waveforms demonstrate parvus and tardus waveforms in the ri ght superficial femoral, popliteal and posterior tibial arteries with delayed systolic upstrokes and broadened systolic peaks. The left MARIAMA is 0.93. The left TBI is 0.39. Arterial waveforms demonstrate normal brisk systolic upst rokes throughout the arteries of the left lower limb.. IMPRESSION: 1. Arterial occlusive disease to the bilateral lower limbs with moderately decreased bilateral high t high pressure indices, moderately decreased right and mildly decreased left ABIs and severely decreas ed right and mild to moderately decreased left TBIs. 2. Parvus and tardus waveforms in the right superficial femoral, popliteal and posterior tibial arter ies secondary to more proximal arterial occlusive disease. Reviewed, dictated and finalized at location A. IMPRESSION: 1. Arterial occlusive disease to the bilateral lower limbs with moderately decr eased bilateral high thigh pressure indices, moderately decreased right and mil dly decreased left ABIs and severely decreased right and mild to moderately dec reased left TBIs. 2. Parvus and tardus waveforms in the right superficial femoral, popliteal and posterior tibial arteries secondary to more proximal arterial occlusive disease .
--- OUTSIDE RECORDS SUMMARY | 2024-07-25 13:57 | XMS_ITS | Clinical Summary ---
Author Organization [facility] Address [address] [place] [address] Care Team Providers Care Bore Mill Operator For Plastic Name Role Phone Ovidio Guo MD Primary Care Provider [phone] Source Comments [facility],non-owned Affiliates and Associated Physician Practices is amultiple site organization consisting of ambulatory clinics and hospital sitesin [place], [place], [place] and [place]. This disclosure is being madepursuant to the Care Everywhere program and may not contain all information available regarding this patient. Last updated 18.[facility] Surface Tension Social History Tobacco Use Types Packs/Day Years Used Date Smoking Tobacco: Never Assessed Sex and Gender Information Value Date Recorded Sex Assigned at Not on file Gender Identity Not on file Sexual Orientation Not on file Plan of Treatment Health Maintenance Due Date Last Done Comments HEPATITIS C SCREENING 10/08/1963 DTAP/TDAP/TD VACCINES (1 - Tdap) 1965 PNEUMOCOCCAL VACCINE 50+ (1 of 1 - PCV) 1996 ZOSTER VACCINE (1 of 2) 1996 Respiratory Syncytial Virus (RSV) Vaccine Pt: or over 60 yrs (1 - 1-dose 75+ series) 2021 COVID-19 VACCINE ( - 2023-2 5 season) 2023 INFLUENZA VACCINE (#1) 2023 DEPRESSION SCREENING 04/23/2024 MEDICARE AWV CALENDAR YEAR 2024 HEPATITIS B VACCINE Aged Out No longe r eligible based on patient's age to complete this topic HIB VACCINE Aged Out No longer eligi ble based on patient's age to complete this topic HPV VACCINE Aged Out No longer eligi ble based on patient's age to complete this topic MENINGOCOCCAL (Group B) VACC INE SHARED DECISION-MAKING Aged Out No longer eligibl e based on patient's age to complete this topic MENINGOCOCCAL GROUPS A/C/Y/W VACCINE Aged Out No longer eligible b ased on patient's age to complete this topic Care Teams Bore Mill Operator For Plastic Relationship Specialty Start Date End Date Ovidio Guo MD [address] [place] [phone] PCP - General 09/15/20
--- OUTSIDE RECORDS SUMMARY | 2024-07-25 13:57 | XMS_ITS | Clinical Summary ---
Author Organization [facility] Address [facility] [place] [address] Care Team Providers Care Butadiene Convertor Operator Name Role Phone Unavailable Primary Care Provider Unavailabl e Social History Tobacco Use Types Packs/Day Years Used Date Smoking Tobacco: Never Assessed Sex and Gender Information Value Date Recorded Sex Assigned at Not on file Legal Sex Male 7:43 PM CDT Gender Identity Not on file Sexual Orientation Not on file Plan of Treatment Health Maintenance Due Date Last Done Comments Hepatitis C 1963 DTaP, Tdap and Td Vaccines ( 1 - Tdap) 1965 Zoster Vaccines (1 of 2) 1996 Pneumococcal Vaccine: 65+ Ye ars (1 of 1 - PCV) 10/14/2011 RSV Immunization or 60+ Years (1 - 1-dose 75+ series) 2021 COVID-19 Vaccine ( - 2023-2 5 season) 2023 Influenza Adult (#1) 2024 Meningococcal B Vaccine Aged Out No l onger eligible based on patient's age to complete this topic Meningococcal Vaccine Aged Out No ktay maddison eligible based on patient's age to complete this topic RSV Immunizations Under 20 Months Aged Out No longer eligible based on patient's age to complete this topic
--- OUTSIDE RECORDS SUMMARY | 2024-07-25 13:57 | XMS_ITS | Encounter Summary ---
Author Organization [facility] Facility Care Team Providers Care Field Professional Name Role Phone Adán Olivia MD Primary Care Provider [phone] Anton Gómez MD Unavailable [phone] Ovidio Guo MD Primary Care Provider [phone] Encounter Details Date Type Department Care Team (Latest Contact Info) Description 10/21/2013 Orders Only [facility] CLINCONV ProviderBasim MD [address] [place] [address] Social History Tobacco Use Types Packs/Day Years Used Date Smoking Tobacco: Never Assessed Sex and Gender Information Value Date Recorded Sex Assigned at Not on file 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 Historical Provider [facility] ISABELLE HOPE Final Result documented in this encounter Visit Diagnoses Not on filedocumented in this encounter Care Teams Field Professional Relationship Specialty Start Date End Date Adán Olivia MD [address] [place] [address] PCP - General Family Medicine 11/13/18 06/09/20 Ovidio Guo MD [address] [facility] [address] [place] [address] PCP - General Internal Medicine 06/10/20 Anton Gómez MD [address] [place] [address] Consulting Physician Cardiovascular Disease 05/06/19 documented as of this encounter
--- OUTSIDE RECORDS SUMMARY | 2024-07-25 13:57 | XMS_ITS | Encounter Summary ---
Author Organization [facility] Address [address] [facility] [place] [address] Care Team Providers Care Cash Register Balancer Name Role Phone Ovidio Guo MD Primary Care Provider [phone] Encounter Details Date Type Department Care Team (Late st Contact Info) Description 12/01/2019 Lab Requisition [facility] DermPath Lab [address] [facility] [place] [address] Stephany Bryant MD [address] [facility] [address] [place] [address] Social History Tobacco Use Types Packs/Day Years Used Date Smoking Tobacco: Never Assessed Sex and Gender Information Value Date Recorded Sex Assigned at Not on file Gender Identity Not on file Sexual Orientation Not on file documented as of this encounter Plan of Treatment Not on file documented as of this encounter Procedures Procedure Name Priority Date/Time Associated Diagnosis Comments DERMATOPATHOLOGY Routine 11/27/2019 12:0 0 AM CDT documented in this encounter Results * DERMATOPATHOLOGY (11/27/2019 12:00 AM CDT) Case Report Dermatopathology Report Case: [id number] Authorizing Provider: Stephany Bryant MD Collected: 11/27/2019 12:00 AM Ordering Location: [facility] Derm[facility] Lab Received: 12/01/2019 12:27 PM Pathologist: Vishal Bailey MD Specimen: Skin, left jawline 0 12:23 PM CDT DERMATOPATHOLOGY LABORATORY Final Diagnosis Specimen A. 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 The specimen consists of a shave biopsy measuring 8x7x3 mm. Jar 0. 0 12:23 PM CDT DERMATOPATHOLOGY LABORATORY Microscopic Description Specimen A. SKIN, left jawline: Arising in the epidermis and extending into the dermis there are irregularly shaped aggregates of keratinocytes showing evidence of premature cornification. 0 12:23 PM CDT DERMATOPATHOLOGY LABORATORY Disclaimer An external and internal positive and negative controls are appropriate for the histochemical, immunohistochemical and immunofluorescence stain(s) in this case (if any), except where stated explicitly. The performance characteristics of the stain(s) cited in this report were developed and its performance characteristic determined by the Dermatopathology Laboratory at [facility], directed by Dr. Higinio Bailey. These tests need not be, and therefore are not, approved by the [place] Food and Drug Administration. The tests are used for clinical purposes. Billing Codes Specimen Charges Stain Charges 14062 1 0 12:23 PM CDT DERMATOPATHOLOGY LABORATORY Embedded Images 0 12:23 PM CDT DERMATOPATHOLOGY LABORATORY Pathology/Cytolog y TISSUE SPECIMEN FROM SKIN / Unknown 11/27/2019 12/01/2019 12:27 PM CDT Stephany Bryant MD LAB - PATHOLOGY/CYT OLOGY ORDERABLES DERMATOPATHOLOGY LABORATORY [facility] - Department of Dermatology [employer] [facility]/[address] [phone] documented in this encounter Visit Diagnoses Not on filedocumented in this encounter Care Teams Cash Register Balancer Relationship Specialty Start Date End Date Ovidio Guo MD [address] [place] [id number] PCP - General 09/15/20 documented as of this encounter
--- OUTSIDE RECORDS SUMMARY | 2024-07-25 13:57 | XMS_ITS | Encounter Summary ---
Author Organization [facility] Facility Care Team Providers Care Elementary School Science Teacher Name Role Phone Adán Oilvia MD Primary Care Provider [phone] Anton Gómez MD Unavailable [phone] Ovidio Guo MD Primary Care Provider Encounter Details Date Type Department Care Team (Latest Contact Info) Description 01/15/2018 Orders Only [facility] CLINCONV ProviderBasim MD [address] [place] [address] Social History Tobacco Use Types Packs/Day Years Used Date Smoking Tobacco: Never Assessed Sex and Gender Information Value Date Recorded Sex Assigned at Not on file 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
--- OUTSIDE RECORDS SUMMARY | 2024-07-25 13:58 | XMS_ITS | Encounter Summary ---
Author Organization [facility] Facility Care Team Providers Care Drop Forge Operator Name Role Phone Adán Olivia MD Primary Care Provider [phone] Anton Gómez MD Unavailable [phone] Ovidio Guo MD Primary Care Provider [phone] Encounter Details Date Type Department Care Team (Latest Contact Info) Description 01/23/2018 Orders Only [facility] CLINCONV ProviderBasim MD [address] [place] [address] Social History Tobacco Use Types Packs/Day Years Used Date Smoking Tobacco: Never Assessed Sex and Gender Information Value Date Recorded Sex Assigned at Not on file 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 Historical Provider Final Res ult documented in this encounter Visit Diagnoses Not on filedocumented in this encounter Care Teams Drop Forge Operator Relationship Specialty Start Date End Date Adán Olivia MD [address] [place] [address] PCP - General Family Medicine 11/13/18 06/09/20 Ovidio Guo MD [address] [address] [facility] [address] [address] PCP - General Internal Medicine 06/10/20 Anton Gómez MD [address] [place] [address] Consulting Physician Cardiovascular Disease 05/06/19 documented as of this encounter
--- OUTSIDE RECORDS SUMMARY | 2024-07-25 13:58 | XMS_ITS | Clinical Summary ---
Author Organization [facility] Address [address] [place] [address] Care Team Providers Care Digital Media Associate Name Role Phone Anton Gómez MD Unavailable [phone] Ovidio Guo MD Primary Care Provider [phone] Allergies Active Allergy Reactions Criticality Noted Date Comments Hydrocodone Stomach upset Low 05/20/2019 Sulfa Swelling Medium 10/15/2018 Medications losartan (COZAAR) 100 mg tablet Take 1 tablet (100 mg total) by mouth daily 9 Active metFORMIN XR (GLUCOPHAGE XR) 500 mg 24 hr tablet Take 1 tablet (500 mg total) by mouth 2 (two) times a day 9 Active simvastatin (ZOCOR) 20 mg tablet Take 20 mg by mouth daily 9 Active blood glucose diagnostic strip by in vitro route Ac tive lancets misc Rx: Microlet Lancets - Miscellaneous, TAKE: TEST TWICE DAILY, REFILLS: 2 Active aspirin 81 mg chewable tablet Take 1 tablet (81 mg total) by mouth daily Active omeprazole (PriLOSEC) 40 mg capsule 1 Active cholecalcifero l (VITAMIN D-3) 50,000 unit capsule TAKE 1 CAPSULE BY MOUTH WEEKLY 1 Active Rybelsus 3 mg tablet 1 Active amLODIPine (NORVASC) 2.5 mg tablet Take 1 tablet (2.5 mg total) by mouth daily 1 Active Unifine Pentips 31 gauge x 1/4 needle USE DIRECTED ONCE DAILY 1 Active rosuvastatin (CRESTOR) 10 mg tablet Take 1 tablet (10 mg total) by mouth daily 1 Active TOUJEO 300 unit/mL (1.5 mL) pen for injection INJECT 15 UNITS UNDER THE SKIN DAILY 1 Active Stiolto Respimat 2.5-2.5 mcg/actuation inhaler INHALE 2 PUFFS DAILY 1 Active NovoLOG 100 unit/mL (3 mL) pen for injection INJECT 5 UNITS SUBCUTANEOUSLY THREE TIMES DAILY BEFORE EACH MEAL 1 Active metoprolol XL (TOPROL-XL) 50 mg extended release tablet TAKE 1 TABLET BY MOUTH EVERY DAY 30 tablet 1 Active fluorouraciL (EFUDEX) 5 % cream 2 Active ketoconazole (NIZORAL) 2 % cream 2 Active Farxiga 10 mg tablet Take 1 tablet (10 mg total) by mouth daily 2 Active meloxicam (MOBIC) 15 mg tablet Take 1 tablet (15 mg total) by mouth daily 14 tablet 2 Active Additional Information Patient not taking.Reported on 04/09/2024 valsartan (DIOVAN) 320 mg tablet Take 1 tablet (320 mg total) by mouth daily Active Active Problems Problem Noted Date Diagnosed Date 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 His pain mostly comes from his left knee. I will have him follow up in 1 year with a repeat arterial duplex for surveillance. He can call sooner if he starts having any rest pain symptoms or notices any wounds on his feet. Peripheral vascular disease, unspecified 021 Assessment & Plan (04/15/2024 8:42 AM HOME HEALTH REGISTERED NURSE): Stable claudication to lower extremities. Continue risk factor modification with ASA and statin therapy follow up in 1 year with repeat noninvasives testing. Assessment & Plan (01/19/2021 2:20 PM CDT): Patient has peripheral arterial disease. He denies any rest pain symptoms or wounds on his feet at this time. Plan will be for follow-up in 1 month with arterial Dopplers. I told him until that time continue to walk as much as he possibly can. He is not a smoker as he quit many years ago. Bilateral carotid artery stenosis 01/19/2021 Assessment & Plan (01/19/2021 2:19 PM CDT): Patient said he was told previously he had narrowing in the arteries of his neck. Plan will be for carotid artery duplex in 1 month with his follow-up appointment. He is currently on an aspirin a day. Coronary artery disease invo lving [place] coronary artery of [place] heart without angina pectoris 02/13/2018 Overview (11/14/2018): Right coronary artery Totally occluded proximally. Receiving collateral circulation from the left system. Essential hypertension 01/21/2018 Assessment & Plan (04/15/2024 8:42 AM HOME HEALTH REGISTERED NURSE): Stable continue amlodipine Assessment & Plan (05/30/2021 11:21 AM HOME HEALTH REGISTERED NURSE): Followed by his PCP. Chronic and stable. I recommend he continue his amlodipine, metoprolol and losartan for blood pressure control. Assessment & Plan (01/19/2021 2:20 PM CDT): Followed by his PCP and controlled on his current medications. Pure hypercholesterolemia 01/21/2018 Assessment & Plan (04/15/2024 8:42 AM HOME HEALTH REGISTERED NURSE): Stable continue Crestor Assessment & Plan (05/30/2021 11:21 AM HOME HEALTH REGISTERED NURSE): Followed by his PCP chronic and stable. I recommend he continue his Crestor for lipid lowering medication which will help with his peripheral arterial disease. Assessment & Plan (01/19/2021 2:20 PM CDT): Followed by his PCP and controlled on a statin. Immunizations Immunization Administration Dates Next Due Influenza, Quadrivalent, Hig h Dose, Preservative Free, Intrr 12/26/2019 Influenza, Trivalent, High D ose, Split, Preservative Free, Intramuscular 12/26/2018,12/26/2017 Pneumococcal Polysaccharide PPV23 12/26/2018 Surgical History Surgery Date Site/Laterality Comments TOTAL KNEE ARTHROPLASTY SHOULDER SURGERY CARPAL TUNNEL RELEASE CARDIAC CATHETERIZATION ABCESS DRAINAGE Medical History Medical History Date Comments Hyperlipidemia Hypertension Diverticulitis Family History Medical History Relation Name Comments Diabetes Father Heart disease Father No Known Problems Mother Relation Name Status Comments Father Mother Social History Tobacco Use Types Packs/Day Years Used Date Smoking Tobacco: Former Alcohol Use Standard Drinks/Week Comments Never 0 (1 standard drink = 0.6 oz pur e alcohol) AUDIT-C Answer Date Recorded Frequency of Alcohol Consumption Never 05/05/2019 Average Number of Drinks Not on file 020 Frequency of Binge Drinking Not on file 04/23 Sex and Gender Information Value Date Recorded Sex Assigned at Not on file Legal Sex Male 7:02 PM HOME HEALTH REGISTERED NURSE Gender Identity Not on file Sexual Orientation Not on file Obstetrics History Last Filed Vital Signs Vital Sign Reading Time Taken Comments Blood Pressure 125/71 04/09/2024 9:19 AM HOME HEALTH REGISTERED NURSE Pulse 85 04/09/2024 9:19 AM HOME HEALTH REGISTERED NURSE Temperature 36.3 C (97.4 F) 12/08/2019 9:55 AM CDT Respiratory Rate - - Oxygen Saturation 94% 04/09/2024 9:19 AM HOME HEALTH REGISTERED NURSE Inhaled Oxygen Concentration - - Weight 113.4 kg (250 lb) 04/09/2024 9:19 AM HOME HEALTH REGISTERED NURSE Height 182.9 cm (6') 04/09/2024 9:19 AM HOME HEALTH REGISTERED NURSE Body Mass Index 33.91 04/09/2024 9:19 AM HOME HEALTH REGISTERED NURSE Plan of Treatment Health Maintenance Due Date Last Done Comments Depression Screening 1945 Fall Risk Assessment 1945 Hepatitis C Screening 1945 DTaP/Tdap/Td Vaccine (1 - Tdap) 1957 Hepatitis B Screening 1964 Zoster Vaccine (1 of 2) 1996 Abdominal Aortic Aneurysm (A AA) Screen 10/14/2011 Well Visit 65+ 10/14/2011 Pneumococcal vaccine 65+ (2 of 2 - PCV) 12/27/2019 12/26/2018 Covid-19 Vaccine (3 - ) 12/23/2023, 06/03/2020 Influenza Vaccine (#1) 2023 , 12/26/2018, 12/26/2017 Insurance [employer] [facility] Advance Directives For more information, please contact: [phone] Documents on File Type Date Recorded Patient Shoeshiner Expl anation ADVANCE DIRECTIVE 08/20/2012 12:00 AM ALAYNA LAURA WILL ADVANCE DIRECTIVE 08/20/2012 12:00 AM REECE R OF CHIEF ULTRASOUND TECHNOLOGIST FINANCIAL/MEDICAL Care Teams Digital Media Associate Relationship Specialty Start Date End Date Ovidio Guo MD [address] [place] [address] PCP - General Internal Medicine 06/10/20 Anton Gómez MD Consulting Physician Cardiovascular Disease 05/06/19
--- OUTSIDE RECORDS SUMMARY | 2024-07-25 13:58 | XMS_ITS | Encounter Summary ---
Author Organization [facility] Facility Care Team Providers Care Training And Development Professional Name Role Phone Adán Olivia MD Primary Care Provider [phone] Anton Gómez MD Unavailable [phone] Ovidio Guo MD Primary Care Provider [phone] Encounter Details Date Type Department Care Team (Latest Contact Info) Description 01/30/2018 Orders Only [facility] CLINCONV ProviderBasim MD [address] [place] [address] Social History Tobacco Use Types Packs/Day Years Used Date Smoking Tobacco: Never Assessed Sex and Gender Information Value Date Recorded Sex Assigned at Not on file 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 Historical Provider Final Res ult documented in this encounter Visit Diagnoses Not on filedocumented in this encounter Care Teams Training And Development Professional Relationship Specialty Start Date End Date Adán Olivia MD [address] [place] [address] PCP - General Family Medicine 11/13/18 06/09/20 Ovidio Guo MD [address] [facility] [address] [address] PCP - General Internal Medicine 06/10/20 Anton Gómez MD [address] [place] [address] Consulting Physician Cardiovascular Disease 05/06/19 documented as of this encounter
--- OUTSIDE RECORDS SUMMARY | 2024-07-25 13:58 | XMS_ITS | Referral Summary ---
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 Continue risk [...] a day. 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 Receiving collateral circulation from the left system. Essential hypertension 01/21/2018 Assessment & Plan (04/15/2024 8:42 AM CHIEF ORTHOPTIST): Stable continue amlodipine Assessment & Plan (05/30/2021 11:21 AM CHIEF ORTHOPTIST): Followed by his PCP. Chronic and stable. I recommend he continue his amlodipine, metoprolol and losartan for blood pressure control. Assessment & Plan (01/19/2021 2:20 PM CDT): Followed by his PCP and controlled on his current medications. Pure hypercholesterolemia 01/21/2018 Assessment & Plan (04/15/2024 8:42 AM CHIEF ORTHOPTIST): Stable continue Crestor Assessment & Plan (05/30/2021 11:21 AM CHIEF ORTHOPTIST): Followed by his PCP chronic and stable. [...] Free, Intramuscular 12/26/2018,12/26/2017 Pneumococcal Polysaccharide PPV23 12/26/2018 Social History Tobacco Use Types Packs/Day Years [...] on file Legal Sex Male 7:02 PM CHIEF ORTHOPTIST Gender Identity Not on file Sexual Orientation Not on file Last Filed Vital Signs Vital Sign Reading Time Taken Comments Blood Pressure 125/71 04/09/2024 9:19 AM CHIEF ORTHOPTIST Pulse 85 04/09/2024 9:19 AM CHIEF ORTHOPTIST Temperature 36.3 C (97.4 F) 12/08/2019 9:55 AM CDT Respiratory Rate - - Oxygen Saturation 94% 04/09/2024 9:19 AM CHIEF ORTHOPTIST Inhaled Oxygen Concentration - - Weight 113.4 kg (250 lb) 04/09/2024 9:19 AM CHIEF ORTHOPTIST Height 182.9 cm (6') 04/09/2024 9:19 AM CHIEF ORTHOPTIST Body Mass Index 33.91 04/09/2024 9:19 AM CHIEF ORTHOPTIST Plan of Treatment Not on file Insurance [facility] Advance Directives For more information, please contact: [phone] Documents on File Type Date Recorded Patient Fertilizer Processing Supervisor Expl anation ADVANCE DIRECTIVE 08/20/2012 12:00 AM ALAYNA NG WILL ADVANCE DIRECTIVE 08/20/2012 12:00 AM REECE Lopez OF CRYPTOGRAPHIC CLERK FINANCIAL/MEDICAL Care Teams Louver Door Assembler Relationship Specialty Start Date End Date Ovidio Guo MD [address] [place] [address] PCP - General Internal Medicine 06/10/20 Anton Gómez MD Consulting Physician Cardiovascular Disease 05/06/19
--- OUTSIDE RECORDS SUMMARY | 2024-07-25 13:58 | XMS_ITS ---
Author Name Luisa ERNANDEZ, MRS. Rios npal Address [address] [place] [address] Phone [phone] Organization [facility] Care Team Providers Care Pallet Rectifier Name Role Phone LuisaGeovanni Unavailable [phone] CARLTON FELIZ Unavailable [phone] KEV RICHARDSON Unavailable [phone] Sultana Arana Unavailable [phone] Reason for Referral Not Available Allergies, adverse reactions, alerts Allergen Type Reaction Severity Status Onset Date Sulfa Antibiotics Allergy to substance (disorder) throat swelling Unknown Active N/A History of medication use Medication Class Instructions Start Date End Date Toujeo SoloStar 300 UNIT/ML Solution Pen-injector Subcutaneous inject 60 units SC daily 2024-04-17 No Data Availab le NovoLOG FlexPen 100 UNIT/ML Solution Pen-injector Subcutaneous Per sliding scale TID after meals 2024-04-17 No Data Available Valsartan 320 mg Tab 1 tablet orally daily 2024-04-17 No Data Available metFORMIN 500 mg Tab 2 tablets orally 2 times per day with meals 2024-04-17 No Data Available amLODIPine Besylate 10 mg Tab 1 tablet orally daily 2024-04-17 No Data Available Metoprolol Succinate ER 50 mg Tab ER 24hr 1 tablet orally daily 2024-04-17 No Data Available Rosuvastatin Calcium 10 mg Tab 1 tablet orally daily 2024-04-17 No Data Available Aspirin 81 mg Tab delayed rel 1 tablet every day 2024-04-17 No Data Available Stiolto Respimat 2.5-2.5 MCG/ACT Aerosol Solution Inhalation 2 puffs inhaled orally daily 2024-04-17 No Data Reshma ilable Problem List Problem Status Onset Date Resolved Date HTN (hypertension) Active 2024-04-17 N/A HLD (hyperlipidemia) Active 2024-04-17 N/A Insulin dependent type 2 diabetes mellitus Active 2024-04-17 N/A COPD (chronic obstructive pulmonary disease) Active 2024-04-17 N/A Lower extremity edema Active 2024-04-17 N/A CAD (coronary artery disease) Active 2024-04-17 N/A Encounters Encounters Type Facility Date of Service Diagnosis/Co mplaint Home visit for evaluation and management of new patient requiring medically appropriate examination and moderate level of medical decision making. If using time, at least 60 minutes total time on enco [facility] [place] 04/17/2024 Essential (primary) hypertensionHyperlipidemia, unspecifiedType 2 diabetes mellitus without complicationsLong term (current) use of insulinChronic obstructive pulmonary disease, unspecifiedLocalized edemaAthscl heart disease of [place] coronary artery w/o ang pctrsBody mass index (bmi) 34.0-34.9, adult Home visit for evaluation and management of new patient requiring medically appropriate examination and moderate level of medical decision making. If using time, at least 60 minutes total time on enco [facility] [place] 04/17/2024 Essential (primary) hypertensionType 2 diabetes mellitus without complications Home visit for evaluation and management of new patient requiring medically appropriate examination and moderate level of medical decision making. If using time, at least 60 minutes total time on [facility] 04/17/2024 Essential (primary) hypertensionType 2 diabetes mellitus without complications Vital Signs Date of Collection Vitals 2024-04-17 06:20:25 Height - 180.34 cmWe ight - 113.4 kgBody Mass Index (BMI) - 34.87 kg/m2BP Diastolic - 70.0 mm[Hg]BP Systolic - 130.0 mm[Hg]Heart Rate - 77.0 /minRespiratory Rate - 17.0 /minBody Temperature - 37.61 CelO2 % BldC Oximetry - 90.0 % Social History Social History Social History Observation Description Effec tive Time Current Smoking Status Former smoker 4 Sex Male History of Procedures Procedures Service Procedure code Service date Servicing provider Phone# Home visit for evaluation and management of new patient requiring medically appropriate examination and moderate level of medical decision making. If using time, at least 60 minutes total time on CREATo [id number] 2024-04-17 No Data Available No Data Availa ble Most recent systolic blood pressure 130 -139 mm Hg 3075F 2024-04-17 No Data Available No Data Availa ble Most recent dystolic blood pressure <80 mm Hg 3078F 2024-04-17 No Data Available No Data Availa ble Functional Status Functional Category Effective Dates continues to drives 2024-04-17 uses a cane or walker for longer distanc es typicallys 2024-04-17 he is independent; lives with 04-17 Mental Status Status Date no cognitive issues 2024-04-17 Assessments Date of Service Assessments 2024-04-17 06:20:25 HTN (hypertension)HL D (hyperlipidemia)Insulin dependent type 2 diabetes mellitusCOPD (chronic obstructive pulmonary disease)Lower extremity edemaCAD (coronary artery disease) Plan of Care Date of Service Plans 2024-04-17 06:20:25 Dr Richardson - follow ups are annualDr. Nettie - follow ups are Q3 months currently; [facility] up Q6 monthsBP controlled; stablecontinue amlodipine, metoprolol and valsartandiscussed caffeine and sodium intakechroniccontinue rosuvastatinencouraged taking omega 3 pillsneed diet modifications and lose weightuncontrolled; A1C > 9.0 4continue metformin, novolog sliding scale and ToujeoEndocrinology appt: 05/08/2024needs gang knife fish chopper referralchronic; stablereviewed the significance of using Stiolo inhaler daily; advised he ask PCP for an albuterol inhaler to use PRNcould benefit from a pulmonary referralchronic; mildencouraged keeping legs elevated when sitting at homerecommend wearing compression stockingsmay need echo as he has never had one donechronic; stablecontinue aspirin 81mg and statin therapydiet modifications discussed Health Concerns Date Concern 2024-04-17 Healthy [facility] Calls is a service that involves a physician or advanced practice provider conducting comprehensive assessments in your patient s home or virtually to address crucial areas such as chronic conditions, quality gaps, social concerns, fall risk prevention, and various screenings. Please note that your patient will remain attributed to you even though they are participating in this service. If you have any questions, please reach out directly to our team at the phone number above.Your patient, Goldy Piedra, 1945, was seen today for a Healthy House Call visit. Patient read rights and responsibilities and consented to treatment. The purpose of this summary is to update you on the patient's current health status and share any relevant findings from the examination. 2024-04-17 A1C > 9.0 ; follows endocrinology with next follow up Dr Feliz, 05/08/2024. He reports not being compliant with the sliding scale at meal times. He reports he loves eating bread and sweets. 2024-04-17 Discussed the signif icance of using the Stiolo inhaler daily. He reports using when he needs to. He does not have an albuterol inhaler to use as needed. 2024-04-17 He reports his legs feel heavy and was seen by vascular but he does not recall they did anything.
--- OUTSIDE RECORDS SUMMARY | 2024-07-25 13:58 | XMS_ITS | Encounter Summary ---
Author Organization [facility] Care Team Providers Care Practical Nursing Instructor Name Role Phone Adán Olivia MD Primary Care Provider [phone] Anton Gómez MD Unavailable [phone] Ovidio Guo MD Primary Care Provider [phone] Encounter Details Date Type Department Care Team (Latest Contact Info) Description 02/04/2018 Orders Only [facility]IN[facility] ProviderBasim MD [address] [place] [id number] Social History Tobacco Use Types Packs/Day Years Used Date Smoking Tobacco: Never Assessed Sex and Gender Information Value Date Recorded Sex Assigned at Not on file Legal Sex Male 7: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 Historical Provider Final Res ult documented in this encounter Visit Diagnoses Not on filedocumented in this encounter Care Teams Practical Nursing Instructor Relationship Specialty Start Date End Date Adán Olivia MD [address] [place] [address] PCP - General Family Medicine 11/13/18 06/09/20 Ovidio Guo MD [address] [facility] [address] [address] PCP - General Internal Medicine 06/10/20 Anton Gómez MD [address] [place] [id number] Consulting Physician Cardiovascular Disease 05/06/19 documented as of this encounter
--- OUTSIDE RECORDS SUMMARY | 2024-07-25 13:58 | XMS_ITS | Encounter Summary ---
Author Organization [facility] Care Team Providers Care Service Officer Name Role Phone Adán Olivia MD Primary Care Provider [phone] nAton Gómez MD Unavailable [phone] Ovidio Guo MD Primary Care Provider [phone] Encounter Details Date Type Department Care Team (Latest Contact Info) Description 01/31/2018 Orders Only [facility]INCON[facility] ProviderBasim MD [address] [place] [address] Social History Tobacco Use Types Packs/Day Years Used Date Smoking Tobacco: Never Assessed Sex and Gender Information Value Date Recorded Sex Assigned at Not on file 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
== END 2024-07-25 13:53 | disposition home or self-care (01) ==
PROVIDERS: PCP Family Medicine; Visit Provider Internal Medicine Cardiovascular Disease
DX: I73.9 Peripheral vascular disease, unspecified (principal)
CPT/HCPCS: 93923